=== PATIENT | female | born 1955 | race African-American/Black ===

== ENCOUNTER → 2017-04-17 | Outpatient (CLI) | payer MEDICARE ==
--- NOTE | 2017-04-18 08:59 | MM ---
Reason for exam: screening (asymptomatic). Last mammogram was performed 1 year and 2 months ago. History: Patient is postmenopausal. Physical Findings: A clinical breast exam by your physician is recommended on an annual basis and results should be correlated with mammographic findings. MG 3D Screening Mammo W/Cad Bilateral CC and MLO view(s) were taken. Prior study comparison: February 08, 2016, bilateral MG screening mammo w CAD. December 28, 2014, bilateral MG screening mammo w CAD. The breast tissue is heterogeneously dense. This may lower the sensitivity of mammography. Finding: There are heterogeneous, linear calcifications in the upper outer quadrant, anterior position of the left breast 3 cm from the nipple. New finding since February 08, 2016 and December 28, 2014. ASSESSMENT: Incomplete: need additional imaging evaluation, BI-RAD 0 RECOMMENDATION: Special view mammogram of the left breast. [facility] will attempt to contact patient to return for supplemental views.
== END | disposition home or self-care (01) ==
LOC: RADMAMWWP 16:35
PROVIDERS: ATTEND Internal Medicine
DX: Z12.31 Encounter for screening mammogram for malignant neoplasm of breast (principal)
CPT/HCPCS: 77063; G0202

== ENCOUNTER → 2017-04-24 | Outpatient (CLI) | payer MEDICARE ==
--- NOTE | 2017-04-24 10:07 | MM ---
Reason for exam: additional evaluation requested from abnormal screening. Last mammogram was performed less than 1 month ago. History: Patient is postmenopausal. Physical Findings: Nurse did not find any significant physical abnormalities on exam. MG 3D Work Up W/Cad LT CC and MLO view(s) were taken of the left breast. Prior study comparison: April 17, 2017, bilateral MG 3d screening mammo w/cad. February 08, 2016, bilateral MG screening mammo w CAD. There are scattered fibroglandular densities. Finding: There are typically benign round, linear, grouped/clustered calcifications in the left breast. No suspicious cluster of microcalcifications on additional views. Increase in number of calcifications since April 17, 2017 and February 08, 2016. These results were verbally communicated with the patient and result sheet given to the patient on 04/24/17. ASSESSMENT: Probably benign, BI-RAD 3 RECOMMENDATION: Follow-up diagnostic mammogram of the left breast in 6 months.
== END | disposition home or self-care (01) ==
LOC: RADMAMWWP 07:55
PROVIDERS: ATTEND Internal Medicine
DX: R92.8 Other abnormal and inconclusive findings on diagnostic imaging of breast (principal)
CPT/HCPCS: G0206; G0279

== ENCOUNTER → 2018-01-07 | Outpatient (CLI) | payer MEDICARE ==
--- NOTE | 2018-01-07 12:55 | XR ---
EXAMINATION TYPE: XR chest 2V DATE OF EXAM: 01/07/2018 COMPARISON: 02/29/2012 INDICATION: Cough, short of breath x3 days TECHNIQUE: Frontal and lateral views of the chest are obtained. FINDINGS: The heart size is normal. The pulmonary vasculature is normal. The lungs are clear. IMPRESSION: 1. No acute pulmonary process.
== END | disposition home or self-care (01) ==
LOC: RADXRMAIN 12:27
PROVIDERS: ATTEND Internal Medicine
DX: R05 Cough (principal)
CPT/HCPCS: 71046

== ENCOUNTER → 2018-01-13 | Outpatient (CLI) | payer MEDICARE ==
--- NOTE | 2018-01-13 11:04 | MM ---
Reason for exam: follow-up at short interval from prior study. Last mammogram was performed 9 months ago. History: Patient is postmenopausal. Physical Findings: Nurse did not find any significant physical abnormalities on exam. MG Diagnostic Mammo LT w CAD CC and MLO view(s) were taken of the left breast. Prior study comparison: April 24, 2017, left breast MG 3d work up w/cad LT. April 17, 2017, bilateral MG 3d screening mammo w/cad. There are scattered fibroglandular densities. Finding: There are typically benign round, grouped/clustered calcifications in the outer quadrant, anterior position of the left breast stable from 2017. Prominent benign left axillary lymph nodes, stable. These results were verbally communicated with the patient and result sheet given to the patient on 01/13/18. ASSESSMENT: Benign, BI-RAD 2 RECOMMENDATION: Follow-up diagnostic mammogram of both breasts in 3 months. Back on schedule.
== END | disposition home or self-care (01) ==
LOC: RADMAMWWP 10:10
PROVIDERS: ATTEND Internal Medicine
DX: R92.2 Inconclusive mammogram (principal)
CPT/HCPCS: 77065

== ENCOUNTER 2018-01-27 06:30 | Day surgery (SDC) | payer MEDICARE ==
[2018-01-20 13:25] VITALS: BMI 39.4
[2018-01-27] MEDS ORDERED: SODIUM CHLORIDE 0.9% 1,000 ML in EMPTY BAG 1 BAG IV ONE (06:47)
[2018-01-27] MEDS ORDERED: ASPIRIN 325 MG TAB PO STA (06:47)
[2018-01-27] MEDS ORDERED: ATORVASTATIN 80 MG TAB PO STA (06:47)
[2018-01-27] MEDS ORDERED: ALPRAZolam 0.5 MG TAB PO PRN (06:47)
[2018-01-27] MEDS ORDERED: NITROGLYCERIN SL TABS 0.4 MG TAB SUBLINGUAL PRN (06:47)
[2018-01-27] MEDS ORDERED: ALPRAZolam 0.25 MG TAB PO PRN (06:47)
[2018-01-27] MEDS ORDERED: SODIUM CHLORIDE 0.9% 1,000 ML IV ONE (07:07)
[2018-01-27] MEDS ORDERED: VERAPAMIL 2.5 MG/ML 2 ML AMP ONE ×2 (07:12→08:21)
[2018-01-27] MEDS ORDERED: LIDOCAINE 2% INJ 20 MG/ML (20 ML MDV) ONE ×2 (07:12→08:21)
[2018-01-27] MEDS ORDERED: fentaNYL (PF) 50 MCG/ML 2 ML AMP ONE (07:12)
[2018-01-27 07:23] VITALS: PULSE 81; TEMP 97.7
[2018-01-27 07:24] LABS: Glucose,Whole Blood 160 mg/dL (75-99)
[2018-01-27] MEDS ORDERED: fentaNYL (PF) 50 MCG/ML 2 ML AMP IV ONE (07:33)
[2018-01-27 07:34] LABS: Anion Gap 17 mmol/L; Blood Urea Nitrogen 21 mg/dL (7-17); Calcium 9.6 mg/dL (8.4-10.2); Carbon Dioxide 26 mmol/L (22-30); Chloride 100 mmol/L (98-107); Glucose 154 mg/dL (74-99); Potassium 3.8 mmol/L (3.5-5.1); Sodium 143 mmol/L (137-145)
[2018-01-27] MEDS: LIDOCAINE 2% INJ 20 MG/ML SQ ONE ×2 (07:35→08:11)
[2018-01-27] MEDS: VERAPAMIL SYRINGE (5 MG/10 ML) INTRAARTER ONE ×2 (07:38→08:03)
[2018-01-27] MEDS ORDERED: HEPARIN SODIUM 1,000 UN/ML (10ML VL) ONE (07:45)
[2018-01-27] MEDS ORDERED: LIDOCAINE 2% INJ 20 MG/ML SQ ONE (08:26)
[2018-01-27] MEDS ORDERED: VERAPAMIL SYRINGE (5 MG/10 ML) INTRAARTER ONE (08:30)
[2018-01-27] MEDS ORDERED: IOPAMIDOL-370 125ML BTL INJ ONE (08:43)
[2018-01-27] MEDS ORDERED: IOPAMIDOL-370 50ML BTL INJ ONE (08:44)
[2018-01-27] MEDS ORDERED: RX INFO: IV CONTRAST WAS GIVEN 1 EACH MISC MISCELLANE PRN (08:58)
[2018-01-27] MEDS ORDERED: SODIUM CHLORIDE 0.9% 1,000 ML IV SCH (09:00)
[2018-01-27] MEDS ORDERED: TIMOLOL 0.5% OPHTH DROPS 5 ML BTL BOTH EYES SCH (09:00)
[2018-01-27] MEDS ORDERED: METOPROLOL TARTRATE 50 MG TAB PO ONE (09:30)
[2018-01-27] MEDS ORDERED: LOSARTAN-HCTZ 50-12.5 MG 1 EACH TAB PO ONE (09:30)
--- NOTE | 2018-01-27 09:48 | CC ---
CARDIAC CATHETERIZATION REPORT Ms. Yao is a 62-year-old female with known history of hypertension, diabetes, family history of premature coronary artery disease who has been complaining of chest discomfort radiating to the back as well as dyspnea on exertion. She underwent a stress test that revealed evidence of inferior wall defect. In view of that, recommendation regarding cardiac catheterization. The procedures, risks and complication were discussed with the patient who is in full understanding and agreement. PROCEDURE: Patient was brought to the [facility] [employer] [facility] in a fasting state after receiving fentanyl and Benadryl and achieving moderate conscious sedated state. Using Xylocaine anesthesia in the surgical technique, a 6-Indonesian sheath was introduced in the right radial artery. Selective right common angiography performed with 5-Indonesian 3.5 bend right Ulsyses catheter. Images of the right coronary artery were performed. Multiple attempts to cannulate the left main using a 5-Indonesian 3.5 bend, 6-Indonesian Kobi, 5-Indonesian 3 Bend left Ulysses, Ultima I, multipurpose 5-Indonesian B2 were unsuccessful in cannulating the left main. At that point, attempt to cannulate the left femoral artery were unsuccessful, so the left radial artery was cannulated using Xylocaine anesthesia and Seldinger technique. A6-Indonesian sheath was introduced. Subsequently, images of the left knee were performed using a 6-Indonesian Ultima I catheter. After obtaining images of the coronary arteries including raman axial views, a 5-Indonesian tight pigtail catheter was introduced into the left ventricle and a 30 degree STAPLETON view of the left ventricle was obtained. Following that, the catheter and sheaths were removed. Hemostasis was obtained with deployment of a TR band on the right and left radial artery. There was no immediate complication. Patient is returned to her room in stable condition. Of note, the patient received 4500 units of intravenous heparin as well as intra-arterial verapamil. FINDINGS: LEFT MAIN: This is large-sized vessel bifurcating into left circumflex, left anterior descending artery, left main coronary artery is without any obstructive disease. LEFT ANTERIOR DESCENDING ARTERY: This is a large-sized vessel reaching toward the apex with a wraparound apex segment giving rise to a diagonal branch. The left anterior descending artery as well as branches have no evidence of obstructive disease. LEFT CIRCUMFLEX: This is a nondominant vessel, moderate in caliber giving rise to 3 obtuse marginal branches. The left circumflex as well as branches have no evidence of obstructive coronary artery disease. RIGHT CORONARY ARTERY: This is a dominant vessel giving rise to a right PDA and a small PLV. The right coronary artery as well as branches have no evidence of obstructive coronary artery disease. LEFT VENTRICULOGRAM: Left ventriculogram was performed in 30 degree STAPLETON view and revealed normal left ventricular size systolic function. The ejection fraction is 60%. There was no significant mitral regurgitation. HEMODYNAMICS: There was no gradient across the aortic valve. The left ventricular end-diastolic pressure was about 16-20 mmHg. CONCLUSION: 1. Normal coronary arteries. 2. Normal left ventricular size and systolic function. RECOMMENDATION: In view of finding anatomy, recommend continue medical therapy with aggressive risk- factor modifications being initiated. Those findings and recommendation were discussed with the patient and her family, who are in full understanding and agreement. DURATION OF PROCEDURE: 76 minute. MMODL / IJN: [id number] /
--- NOTE | 2018-01-27 09:54 | LTR ---
DATE OF SERVICE: 01/27/2018 RE: Mery Yao Dear Dr. Tabor; I had the pleasure to perform cardiac catheterization with Ms. Yao at [facility] on January 27, 2018 and a full copy of the procedure note will be forwarded to you. In brief, she was found to have no evidence of obstructive coronary artery disease with preserved left ventricular size and systolic function, and based on that, I recommend continue medical therapy with aggressive risk-factor modifications being initiated. Thank you again for allowing me to participate in this patient's care. Please feel free to call for any questions. Sincerely, MD ONESIMO Baird / TRACE: [id number] /
[2018-01-27 11:13] VITALS: RESP 20
[2018-01-27 11:37] LABS: Basophils % (A) 1 %; Eosinophils # (A) 0.2 k/uL (0-0.7); Eosinophils % (A) 3 %; HCT 36.3 % (34.0-46.0); HGB 12.1 gm/dL (11.4-16.0); Lymphocytes # (A) 1.8 k/uL (1.0-4.8); Lymphocytes % (A) 31 %; MCH 26.4 pg (25.0-35.0); MCHC 33.2 g/dL (31.0-37.0); MCV 79.5 fL (80.0-100.0); Mean Platelet Volume 8.2; Monocytes # (A) 0.5 k/uL (0-1.0); Monocytes % (A) 9 %; Neutrophils # (A) 3.3 k/uL (1.3-7.7); Neutrophils % (A) 54 %; Platelet Count 358 k/uL (150-450); RBC 4.57 m/uL (3.80-5.40); RDW 13.3 % (11.5-15.5)
[2018-01-27 14:17] LABS: Glucose,Whole Blood 144 mg/dL (75-99)
[2018-01-27 15:04] VITALS: BP 134/82
[2018-01-27] MEDS ORDERED: LOSARTAN-HCTZ 50-12.5 MG 1 EACH TAB PO SCH (21:00)
[2018-01-27] MEDS ORDERED: LATANOPROST 0.005% OPHTH DROPS 2.5 ML BTL BOTH EYES SCH (21:00)
[2018-01-27] MEDS ORDERED: METOPROLOL TARTRATE 50 MG TAB PO SCH (21:00)
[2018-01-28] MEDS ORDERED: ASPIRIN 81 MG PO SCH (09:00)
== END 2018-01-27 14:35 | disposition home or self-care (01) ==
LOC: CATHCVL 06:30
PROVIDERS: ATTEND Internal Medicine Interventional Cardiology
DX: R94.39 Abnormal result of other cardiovascular function study (principal); R07.89 Other chest pain; R06.09 Other forms of dyspnea; I47.1 Supraventricular tachycardia; Z82.49 Family history of ischemic heart disease and other diseases of the circulatory system; I10 Essential (primary) hypertension; E11.9 Type 2 diabetes mellitus without complications; Z79.4 Long term (current) use of insulin; Z88.0 Allergy status to penicillin; Z88.8 Allergy status to other drugs, medicaments and biological substances
CPT/HCPCS: 93458; 80048; 85025; C1894 ×2; C1887; C1769; J2001; J3010; J1644; Q9967 ×2

== ENCOUNTER → 2018-05-25 | Outpatient (CLI) | payer MEDICARE ==
--- NOTE | 2018-05-25 08:48 | MM ---
Reason for exam: additional evaluation requested from prior study. Last mammogram was performed 4 months ago. History: Patient is postmenopausal. Physical Findings: Nurse did not find any significant physical abnormalities on exam. MG Diagnostic Mammo w CAD JERMAIN Bilateral CC and MLO view(s) were taken. Technologist: Beverley Lopes RT (R)(M) Prior study comparison: January 13, 2018, left breast MG diagnostic mammo LT w CAD. April 24, 2017, left breast MG 3d work up w/cad LT. There are scattered fibroglandular densities. Stable benign calcifications. No significant new findings when compared with previous films. These results were verbally communicated with the patient and result sheet given to the patient on 05/25/18. ASSESSMENT: Benign, BI-RAD 2 RECOMMENDATION: Routine screening mammogram of both breasts in 1 year.
== END | disposition home or self-care (01) ==
LOC: RADMAMWWP 08:16
PROVIDERS: ATTEND Internal Medicine
DX: R92.2 Inconclusive mammogram (principal)
CPT/HCPCS: 77066

== ENCOUNTER → 2019-08-30 | Outpatient (CLI) | payer MEDICARE ==
--- NOTE | 2019-08-31 08:40 | BD ---
EXAMINATION TYPE: Axial Bone Density DATE OF EXAM: 08/30/2019 COMPARISON: NONE CLINICAL HISTORY: Height: Weight: FRAX RISK QUESTIONS: Alcohol (3 or more units per day): no Family History (Parent hip fracture): no Glucocorticoids (More than 3mos): no (Ex: prednisone, prednisolone, methylprednisolone, dexamethasone, and hydrocortisone). History of Fracture in Adulthood: no Secondary Osteoporosis: 1. Type 1 Diabetes: no 2. Hyperthyroidism: no 3. Menopause before 45: yes 4. Malnutrition: no 5. Chronic liver disease: no Rheumatoid Arthritis: no Current Tobacco Use: no RISK FACTORS HISTORY OF: Family History of Osteoporosis: yes- mother Active: yes Diet low in dairy products/other sources of calcium: no Postmenopausal woman: age 27 Lost more than 2 inches in height since high school: no MEDICATIONS: type 2 diabetic meds Additional History: EXAM MEASUREMENTS: Bone mineral densitometry was performed using the [employer] System. Bone mineral density as measured about the Lumbar spine is: ----- L1-L4(G/cm2): 1.531 T Score Values are as follows: ----- L2: 3.2 ----- L3: 3.2 ----- L4: 2.0 ----- L1-L4: 2.9 Bone mineral density has: increased 2.9 % since study of: 01.17.2014 Bone mineral density about the R hip (g/cm2): 1.366 Bone mineral density about the L hip (g/cm2): 1.332 T Score values are as follows: -----R Neck: 2.4 -----L Neck: 2.1 -----R Total: 4.0 -----L Total: 4.2 Bone mineral density has: decreased -3.4 % since study of: 01.17.2014 IMPRESSION: Normal (Values between +1 and -1 indicate normal bone mass). Consider repeating this study in 5 year s or sooner if there is some new clinical indication. NOTE: T-SCORE=SD OF THE YOUNG ADULT MEAN.
--- NOTE | 2019-08-31 12:13 | MM ---
Reason for exam: screening (asymptomatic). Last mammogram was performed 1 year and 3 months ago. History: Patient is postmenopausal. Physical Findings: A clinical breast exam by your physician is recommended on an annual basis and results should be correlated with mammographic findings. MG Screening Mammo w CAD Bilateral CC and MLO view(s) were taken. Prior study comparison: May 25, 2018, bilateral MG diagnostic mammo w CAD JERMAIN. January 13, 2018, left breast MG diagnostic mammo LT w CAD. There are scattered fibroglandular densities. Finding: There are typically benign dystrophic, round, regional calcifications in the left breast. There is no discrete abnormality. ASSESSMENT: Benign, BI-RAD 2 RECOMMENDATION: Routine screening mammogram of both breasts in 1 year.
== END | disposition home or self-care (01) ==
LOC: RADMAMWWP 14:19
PROVIDERS: ATTEND Internal Medicine
DX: Z12.31 Encounter for screening mammogram for malignant neoplasm of breast (principal); M85.9 Disorder of bone density and structure, unspecified
CPT/HCPCS: 77067; 77080

== ENCOUNTER 2019-09-29 06:39 | Emergency (ER) | payer MEDICARE ==
[2019-09-29 06:49] VITALS: RESP 18
[2019-09-29 06:54] LABS: Glucose,Whole Blood 215 mg/dL (75-99)
[2019-09-29] MEDS ORDERED: SODIUM CHLORIDE 0.9% 500 ML 500 ML IV STA (06:59)
[2019-09-29 07:08] LABS: Basophils % (A) 1 %; Eosinophils # (A) 0.3 k/uL (0-0.7); Eosinophils % (A) 4 %; HCT 35.5 % (34.0-46.0); HGB 12.1 gm/dL (11.4-16.0); Lymphocytes # (A) 2.5 k/uL (1.0-4.8); Lymphocytes % (A) 32 %; MCH 27.6 pg (25.0-35.0); MCV 81.2 fL (80.0-100.0); Mean Platelet Volume 7.5; Monocytes # (A) 0.6 k/uL (0-1.0); Monocytes % (A) 7 %; Neutrophils # (A) 4.1 k/uL (1.3-7.7); Neutrophils % (A) 54 %; Platelet Count 252 k/uL (150-450); RBC 4.37 m/uL (3.80-5.40); RDW 13.3 % (11.5-15.5); WBC 7.6 k/uL (3.8-10.6)
--- NOTE | 2019-09-29 07:08 | ED ---
General Adult HPI - General Chief complaint: Syncope Stated complaint: Syncope Time Seen by Provider: 09/29/19 06:48 Source: patient, EMS Mode of arrival: EMS Limitations: no limitations - History of Present Illness Initial comments: Patient is a 64-year-old female presenting to the emergency department, via EMS, after a syncopal episode. Patient states she awoke in the middle of the night feeling "off." She thought maybe her blood sugar was low as she felt like her legs were heavy and she felt lightheaded. Patient states she went to the restroom and open the window to get some fresh air and then we'll had a bowel movement. She then stood up to go back to bed however the Nexium she knew she woke up on the floor. Patient does not think she hit her head on anything. She denies being on blood thinners. Currently, patient has no pain. She states she feels okay. Patient denies recent fever, chills, cough, chest pain, nausea, vomiting. Patient states yesterday evening she went to congregational and came home and was feeling normal. Patient has no other complaints at this time. Upon arrival to the ER, her vital signs are stable. - Related Data Home Medications Medication Instructions Recorded Confirmed Aspirin [Adult Low Dose Aspirin EC] 81 mg PO DAILY 01/20/18 09/29/19 Insuln Asp Prt/Insulin Aspart 5 - 30 unit SQ BID 01/20/18 09/29/19 [NovoLOG MIX 70-30 VIAL] Latanoprost [Xalatan 0.005%] 1 drop BOTH EYES HS 01/20/18 09/29/19 Losartan-Hctz 50-12.5 mg [Hyzaar 1 each PO BID 01/20/18 09/29/19 50-12.5] Metoprolol Tartrate [Lopressor] 50 mg PO BID 01/20/18 09/29/19 Timolol 0.5% Ophth Soln [Timoptic 1 drop BOTH EYES BID 01/20/18 09/29/19 0.5% Ophth Soln] metFORMIN HCL 1,000 mg PO BID 01/20/18 09/29/19 Atorvastatin [Lipitor] 20 mg PO DAILY 09/29/19 09/29/19 Multivit with Calcium,Iron,Min 1 tab PO DAILY 09/29/19 09/29/19 [Women's Multivitamin] glipiZIDE [Glucotrol] 5 mg PO BID 09/29/19 09/29/19 Allergies Allergy/AdvReac Type Severity Reaction Status Date / Time metoclopramide [From Reglan] Allergy Unknown Verified 09/29/19 06:49 Penicillins Allergy Rash/Hives Verified 09/29/19 06:49 Review of Systems ROS Statement: Those systems with pertinent positive or pertinent negative responses have been documented in the HPI. ROS Other: All systems not noted in ROS Statement are negative. Past Medical History Past Medical History: Blood Disorder, Diabetes Mellitus, Eye Disorder, Fibromyalgia, Hypertension, Osteoarthritis (OA) Additional Past Medical History / Comment(s): Current SOB on occasion, back pain, persistent cough x 2yrs, anemia, bilateral glaucoma. murmur History of Any Multi-Drug Resistant Organisms: None Reported Past Surgical History: Heart Catheterization, Hysterectomy, Tonsillectomy Additional Past Surgical History / Comment(s): Partial hysterectomy, hemorrhoidectomy, bilateral carpal tunnel. bladder repair, bowel repair, vagus nerve removed. Past Anesthesia/Blood Transfusion Reactions: Family History of Problems w/ Anesthesia Additional Past Anesthesia/Blood Transfusion Reaction / Comment(s): Mother had hard time coming out of anesthesia X1. Past Psychological History: No Psychological Hx Reported Smoking Status: Never smoker Past Alcohol Use History: None Reported Past Drug Use History: None Reported - Past Family History Mother Family Medical History: No Reported History General Exam - General Exam Comments Initial Comments: GENERAL: Well-appearing, well-nourished and in no acute distress. HEAD: Atraumatic, normocephalic. EYES: Pupils equal round and reactive to light, extraocular movements intact, sclera anicteric, conjunctiva are normal. ENT: TMs normal, nares patent, oropharynx clear without exudates. Moist mucous membranes. NECK: Normal range of motion, supple without lymphadenopathy or JVD. LUNGS: Breath sounds clear to auscultation bilaterally and equal. No wheezes rales or rhonchi. HEART: Regular rate and rhythm without murmurs, rubs or gallops. ABDOMEN: Soft, nontender, normoactive bowel sounds. No guarding, no rebound. No masses appreciated. : Deferred EXTREMITIES: Normal range of motion, no pitting or edema. No clubbing or cyanosis. NEUROLOGICAL: Cranial nerves II through XII grossly intact. Normal speech, normal gait. PSYCH: Normal mood, normal affect. SKIN: Warm, Dry, normal turgor, no rashes or lesions noted. Limitations: no limitations Course Vital Signs 09/29/19 06:40 Temperature 98.6 F Pulse Rate 93 Respiratory 18 Rate Blood Pressure 127/60 O2 Sat by Pulse 97 Oximetry EKG Findings - EKG Comments: EKG Findings:: Ventricular rate 96, MD interval 140, QTC 467. Normal sinus rhythm, no acute ST segment changes. Medical Decision Making - Medical Decision Making Patient is a 64-year-old female presenting after syncopal episode at home. Patient states denies any pain today. She feels fine on arrival. Vital signs are stable. Workup today including lab work, urine, EKG, troponin, had CT, chest x-ray all showed no acute abnormalities. I discussed these findings with the patient. Patient states she has had previous syncopal episodes with numerous workups without any acute findings. Patient continues to feel stable and wishes to be discharged. Patient will follow up with her PCP. Patient is in agreement with this plan of care. Return parameters were discussed with the patient she verbalized understanding. Case discussed with Dr. Maldonado. - Lab Data Result diagrams: 09/29/19 06:48 09/29/19 06:48 Lab Results 09/29/19 09/29/19 09/29/19 Range/Units 06:48 06:48 06:48 WBC 7.6 (3.8-10.6) k/uL RBC 4.37 (3.80-5.40) m/uL Hgb 12.1 (11.4-16.0) gm/dL Hct 35.5 (34.0-46.0) % MCV 81.2 (80.0-100.0) fL MCH 27.6 (25.0-35.0) pg MCHC 34.0 (31.0-37.0) g/dL RDW 13.3 (11.5-15.5) % Plt Count 252 (150-450) k/uL Neutrophils % 54 % Lymphocytes % 32 % Monocytes % 7 % Eosinophils % 4 % Basophils % 1 % Neutrophils # 4.1 (1.3-7.7) k/uL Lymphocytes # 2.5 (1.0-4.8) k/uL Monocytes # 0.6 (0-1.0) k/uL Eosinophils # 0.3 (0-0.7) k/uL Basophils # 0.0 (0-0.2) k/uL PT 10.0 (9.0-12.0) sec INR 0.9 (<1.2) APTT 20.5 L (22.0-30.0) sec Sodium 138 (137-145) mmol/L Potassium 4.3 (3.5-5.1) mmol/L Chloride 102 (98-107) mmol/L Carbon Dioxide 23 (22-30) mmol/L Anion Gap 13 mmol/L BUN 21 H (7-17) mg/dL Creatinine 0.82 (0.52-1.04) mg/dL Est GFR (CKD-EPI)AfAm 87 (>60 ml/min/1.73 sqM) Est GFR (CKD-EPI)NonAf 75 (>60 ml/min/1.73 sqM) Glucose 221 H (74-99) mg/dL POC Glucose (mg/dL) (75-99) mg/dL POC Glu Refinery Operator Coking ID Calcium 9.7 (8.4-10.2) mg/dL Total Bilirubin 0.7 (0.2-1.3) mg/dL AST 42 H (14-36) U/L ALT 31 (4-34) U/L Alkaline Phosphatase 42 (38-126) U/L Troponin I (0.000-0.034) ng/mL Total Protein 7.6 (6.3-8.2) g/dL Albumin 4.5 (3.5-5.0) g/dL Urine Color Urine Appearance (Clear) Urine pH (5.0-8.0) Ur Specific Lester (1.001-1.035) Urine Protein (Negative) Urine Glucose (UA) (Negative) Urine Ketones (Negative) Urine Blood (Negative) Urine Nitrite (Negative) Urine Bilirubin (Negative) Urine Urobilinogen (<2.0) mg/dL Ur Leukocyte Esterase (Negative) Urine RBC (0-5) /hpf Urine WBC (0-5) /hpf Ur Squamous Epith Cells (0-4) /hpf Urine Mucus (None) /hpf 09/29/19 09/29/19 09/29/19 Range/Units 06:48 06:52 08:00 WBC (3.8-10.6) k/uL RBC (3.80-5.40) m/uL Hgb (11.4-16.0) gm/dL Hct (34.0-46.0) % MCV (80.0-100.0) fL MCH (25.0-35.0) pg MCHC (31.0-37.0) g/dL RDW (11.5-15.5) % Plt Count (150-450) k/uL Neutrophils % % Lymphocytes % % Monocytes % % Eosinophils % % Basophils % % Neutrophils # (1.3-7.7) k/uL Lymphocytes # (1.0-4.8) k/uL Monocytes # (0-1.0) k/uL Eosinophils # (0-0.7) k/uL Basophils # (0-0.2) k/uL PT (9.0-12.0) sec INR (<1.2) APTT (22.0-30.0) sec Sodium (137-145) mmol/L Potassium (3.5-5.1) mmol/L Chloride (98-107) mmol/L Carbon Dioxide (22-30) mmol/L Anion Gap mmol/L BUN (7-17) mg/dL Creatinine (0.52-1.04) mg/dL Est GFR (CKD-EPI)AfAm (>60 ml/min/1.73 sqM) Est GFR (CKD-EPI)NonAf (>60 ml/min/1.73 sqM) Glucose (74-99) mg/dL POC Glucose (mg/dL) 215 H (75-99) mg/dL POC Glu Refinery Operator Coking ID Nallely, Lizette Calcium (8.4-10.2) mg/dL Total Bilirubin (0.2-1.3) mg/dL AST (14-36) U/L ALT (4-34) U/L Alkaline Phosphatase (38-126) U/L Troponin I <0.012 (0.000-0.034) ng/mL Total Protein (6.3-8.2) g/dL Albumin (3.5-5.0) g/dL Urine Color Yellow Urine Appearance Clear (Clear) Urine pH 5.5 (5.0-8.0) Ur Specific Lester 1.012 (1.001-1.035) Urine Protein Negative (Negative) Urine Glucose (UA) 1+ H (Negative) Urine Ketones Negative (Negative) Urine Blood Negative (Negative) Urine Nitrite Negative (Negative) Urine Bilirubin Negative (Negative) Urine Urobilinogen <2.0 (<2.0) mg/dL Ur Leukocyte Esterase Moderate H (Negative) Urine RBC 1 (0-5) /hpf Urine WBC 2 (0-5) /hpf Ur Squamous Epith Cells 3 (0-4) /hpf Urine Mucus Rare H (None) /hpf Disposition Clinical Impression: Syncope Disposition: HOME SELF-CARE Condition: Stable Instructions (If sedation given, give patient instructions): Syncope (ED) Additional Instructions: Please return to the Emergency Department if symptoms worsen or any other concerns. Follow up with PCP. Is patient prescribed a controlled substance at d/c from ED?: No Referrals: Inga Tabor MD [Primary Care Provider] - 1-2 days
[2019-09-29 07:23] LABS: Albumin 4.5 g/dL (3.5-5.0); Calcium 9.7 mg/dL (8.4-10.2); Total Bilirubin 0.7 mg/dL (0.2-1.3); Total Protein 7.6 g/dL (6.3-8.2)
[2019-09-29 07:25] LABS: INR 0.9 (<1.2)
[2019-09-29 07:28] LABS: Potassium 4.3 mmol/L (3.5-5.1)
--- NOTE | 2019-09-29 07:34 | XR ---
EXAMINATION TYPE: XR chest 2V DATE OF EXAM: 09/29/2019 COMPARISON: 01/07/2018 INDICATION: Syncope with fall TECHNIQUE: Frontal and lateral views of the chest are obtained. FINDINGS: The heart size is normal. The pulmonary vasculature is normal. The lungs are clear. No pneumothorax is evident. Osseous structures as visualized appear intact IMPRESSION: 1. No acute pulmonary process.
--- NOTE | 2019-09-29 07:38 | CT ---
EXAMINATION TYPE: CT brain terrance wo con DATE OF EXAM: 09/29/2019 COMPARISON: HISTORY: Syncopal episode with head injury and dizziness. CT DLP: 1567.6 mGycm, Automated exposure control for dose reduction was used. CONTRAST: Patient injected with mL of . CT of the brain is performed utilizing 3 mm thick sections through the posterior fossa and 3 mm thick sections through the remaining calvarium. Study is performed within 24 hours of arrival to the hospital. No abnormal hyperdensity is present to suggest an acute intracranial hemorrhage. No mass lesion is evident. No acute infarcts are evident. Some minimal periventricular white matter chronic type changes may be present Ventricles and sulci are appropriate for the patient age. Paranasal sinuses and mastoid air cells within the [id number] are clear. IMPRESSIONS: 1. Minimal chronic appearing white matter changes. 2. No acute intracranial process. CT cervical spine. COMPARISON: None CT of the cervical spine is performed in the axial plane at 2 mm thick sections. Reconstructed image s in the coronal, and sagittal plane are reviewed on the computer. No acute fractures are evident. There is some straightening of the cervical spine in the upper cervical spine. There is narrowing of disc height C3-4 and to a lesser degree C4-5 C5-6 and C6-7. Anterior vertebral body spurring is present C3-C7. Posterior spinal lamellar line appears intact. Vertebral body heights are preserved. No spinal canal stenosis is evident. There is some uncovertebral joint hypertrophy at C3-4 causing mild foraminal narrowing. Mild right fo raminal narrowing is present C4-5. Minimal Uncovertebral joint hypertrophy is present C5-6 and C6-C 7 with minimal bilateral foraminal narrowing. IMPRESSIONS: 1. Straightening of the cervical spine can be related to some muscle spasm. 2. Multilevel degenerative disc changes. 3. Mild foraminal narrowing from uncovertebral joint hypertrophy discussed above 4. No acute osseous abnormality.
[2019-09-29 07:42] LABS: Partial Thromboplastin Time 20.5 sec (22.0-30.0)
[2019-09-29 08:15] LABS: Appearance,Urine Clear (Clear); Bilirubin,Urine Negative (Negative); Blood,Urine Negative (Negative); Color,Urine Yellow; Glucose,Urine (UA) 1+ (Negative); Ketones,Urine Negative (Negative); Leukocyte Esterase,Urine Moderate (Negative); Mucus,Urine Rare /hpf; Nitrite,Urine Negative (Negative); PH, Urine 5.5 (5.0-8.0); Protein,Urine Negative (Negative); RBC,Urine 1 /hpf (0-5); Specific Gravity,Urine 1.012 (1.001-1.035); Squamous Epithelial Cell,Urine 3 /hpf (0-4); Urobilinogen,Urine <2.0 mg/dL (<2.0); WBC,Urine 2 /hpf (0-5)
[2019-09-29 08:46] VITALS: BP 127/62; PULSE 96; TEMP 98.4
== END 2019-09-29 08:40 | disposition home or self-care (01) ==
LOC: EC 06:39
DX: R55 Syncope and collapse (principal); I10 Essential (primary) hypertension; E11.9 Type 2 diabetes mellitus without complications; Z79.82 Long term (current) use of aspirin; Z79.4 Long term (current) use of insulin; Z79.899 Other long term (current) drug therapy; Z88.0 Allergy status to penicillin; Z88.8 Allergy status to other drugs, medicaments and biological substances
CPT/HCPCS: 36415; 70450; 71046; 72125; 80053; 81001; 84484; 85025; 85610; 85730; 93005; 99285

== ENCOUNTER → 2020-09-04 | Outpatient (CLI) | payer MEDICARE ==
--- NOTE | 2020-09-04 09:23 | MM ---
Reason for exam: screening (asymptomatic). Last mammogram was performed 1 year ago. History: Patient is postmenopausal. Physical Findings: A clinical breast exam by your physician is recommended on an annual basis and results should be correlated with mammographic findings. MG Screening Mammo w CAD Bilateral CC and MLO view(s) were taken. Prior study comparison: August 30, 2019, bilateral MG screening mammo w CAD. May 25, 2018, bilateral MG diagnostic mammo w CAD JERMAIN. There are scattered fibroglandular densities. Finding: There are typically benign dystrophic calcifications in the anterior position of the left breast. There is no discrete abnormality. ASSESSMENT: Benign, BI-RAD 2 RECOMMENDATION: Routine screening mammogram of both breasts in 1 year.
--- NOTE | 2020-09-04 10:21 | BD ---
EXAMINATION TYPE: Axial Bone Density DATE OF EXAM: 09/04/2020 COMPARISON: DEXA bone scan 2018 CLINICAL HISTORY: Postmenopausal female. Height: 59 Weight: 194.6 FRAX RISK QUESTIONS: Alcohol (3 or more units per day): no Family History (Parent hip fracture): no Glucocorticoids (More than 3mos): no (Ex: prednisone, prednisolone, methylprednisolone, dexamethasone, and hydrocortisone). History of Fracture in Adulthood: no Secondary Osteoporosis: 1. Type 1 Diabetes: no 2. Hyperthyroidism: no 3. Menopause before 45: yes 4. Malnutrition: no 5. Chronic liver disease: no Rheumatoid Arthritis: no Current Tobacco Use: no RISK FACTORS HISTORY OF: Family History of Osteoporosis: yes Active: yes Diet low in dairy products/other sources of calcium: no Postmenopausal woman: hysterectomy age 27 Lost more than 2 inches in height since high school: just 2 inches MEDICATIONS: bp meds, diabetic meds, heart meds, lipitor, aspirin, vitamins Additional History: EXAM MEASUREMENTS: Bone mineral densitometry was performed using the [employer] System. Bone mineral density as measured about the Lumbar spine is: ----- L1-L4(G/cm2): 1.511 T Score Values are as follows: ----- L2: 3.1 ----- L3: 2.7 ----- L4: 2.2 ----- L1-L4: 2.8 Bone mineral density has: decreased -1.4 % since study of: 08.30.2019 Bone mineral density about the R hip (g/cm2): 1.341 Bone mineral density about the L hip (g/cm2): 1.436 T Score values are as follows: -----R Neck: 2.2 -----L Neck: 2.9 -----R Total: 4.1 -----L Total: 4.6 Bone mineral density has: increased 1.5 % since study of: 08.30.2019 IMPRESSION: Normal (Values between +1 and -1 indicate normal bone mass). Consider repeating this study in 5 year s or sooner if there is some new clinical indication. NOTE: T-SCORE=SD OF THE YOUNG ADULT MEAN.
== END | disposition home or self-care (01) ==
LOC: RADBDWWP 07:12
PROVIDERS: ATTEND Internal Medicine
DX: Z00.00 Encounter for general adult medical examination without abnormal findings (principal); Z12.31 Encounter for screening mammogram for malignant neoplasm of breast; M81.0 Age-related osteoporosis without current pathological fracture
CPT/HCPCS: 77067; 77080

== ENCOUNTER → 2021-05-16 | Outpatient (CLI) | payer MEDICARE ==
--- NOTE | 2021-05-16 14:32 | XR ---
EXAMINATION TYPE: XR lumbar spine 2 or 3V DATE OF EXAM: 05/16/2021 CLINICAL HISTORY: pain TECHNIQUE: Three views of the lumbar spine are submitted. COMPARISON: None. FINDINGS: There are 5 lumbar type vertebral bodies identified. The lumbar spine shows satisfactory alignment w ithout evidence of acute fracture or dislocation. Vertebral body heights are within normal limits. Mild degenerative disc space narrowing at L4-5 and L5-S1. Grade 1 anterolisthesis L4 and L5 measuring 4.6 mm. Facet joint arthropathy. The overlying soft tissue appears unremarkable. IMPRESSION: No acute fracture or dislocation is seen in the lumbar spine. ICD 10 NO FRACTURE, INITIAL EVALUATION
== END | disposition home or self-care (01) ==
LOC: RADXRMAIN 13:46
PROVIDERS: ATTEND Internal Medicine
DX: M54.5 Low back pain (principal)
CPT/HCPCS: 72100

== ENCOUNTER → 2021-07-14 | Outpatient (CLI) | payer MEDICARE ==
--- NOTE | 2021-07-14 09:56 | MR ---
EXAMINATION TYPE: MR lumbar spine wo con DATE OF EXAM: 07/14/2021 COMPARISON: None HISTORY: Low back pain/ spasms, left leg pain TECHNIQUE: Multiplanar, multisequence images of the lumbar spine were acquired without IV contrast. Findings: The lumbar vertebral segments are normal in height and alignment and there is no fracture or subluxat ion. The disc spaces are well-maintained in height. There is mild circumferential disc bulge at the T12/L1 disc, L3-4 disc, L4-5 and L5-S1 discs. There is no focal disc protrusion or herniation. There is marked facet arthropathy at the L4-5 level and moderate facet arthropathy at the L3-4 and L5 -S1 levels. Secondary to facet arthropathy and thickening ligamentum flavum, there is a mild spinal stenosis at t he L4-5 level. The conus medullaris and cauda equina appear normal. There is mild neural foraminal stenosis at the L3-4, L4-5 and L5-S1 levels on the left. There is mode rate to severe neural foraminal stenosis at the L4-5 level on the right.. IMPRESSION: 1. Mild multilevel degenerative disc disease without lumbar disc herniation. 2. Mild spinal stenosis at the L4-5 level. 3. Bilateral multilevel neural foraminal stenosis greatest at the L4-5 level on the right. 4. Advanced osteoarthritic change of the facet joints in the lower lumbar spine as described above. The paraspinal soft tissues are unremarkable.
== END | disposition home or self-care (01) ==
LOC: RADMRIMAIN 08:56
PROVIDERS: ATTEND Internal Medicine
DX: M48.061 Spinal stenosis, lumbar region without neurogenic claudication (principal); M51.36 Other intervertebral disc degeneration, lumbar region; M99.73 Connective tissue and disc stenosis of intervertebral foramina of lumbar region; M47.816 Spondylosis without myelopathy or radiculopathy, lumbar region
CPT/HCPCS: 72148

== ENCOUNTER → 2021-09-18 | Outpatient (CLI) | payer MEDICARE ==
--- NOTE | 2021-09-19 14:00 | MM ---
Reason for exam: screening (asymptomatic). Last mammogram was performed 1 year ago. History: Patient is postmenopausal. Physical Findings: A clinical breast exam by your physician is recommended on an annual basis and results should be correlated with mammographic findings. MG Screening Mammo w CAD Bilateral CC and MLO view(s) were taken. Prior study comparison: September 04, 2020, bilateral MG screening mammo w CAD. August 30, 2019, bilateral MG screening mammo w CAD. There are scattered fibroglandular densities. Benign appearing stable calcifications in the left breast. No significant changes when compared with prior studies. ASSESSMENT: Benign, BI-RAD 2 RECOMMENDATION: Routine screening mammogram of both breasts in 1 year.
== END | disposition home or self-care (01) ==
LOC: RADMAMWWP 10:13
PROVIDERS: ATTEND Internal Medicine
DX: Z12.31 Encounter for screening mammogram for malignant neoplasm of breast (principal); Z78.0 Asymptomatic menopausal state
CPT/HCPCS: 77067

== ENCOUNTER → 2021-10-24 | Outpatient (CLI) | payer MEDICARE ==
--- NOTE | 2021-10-24 12:52 | P.CON ---
Consult Note - . Consult date: 10/24/21 Assessment/Plan:: HISTORY OF PRESENT ILLNESS: 63 year old female with at side presents today as a referral from Dr. Tabor for lumbar pain s/p lumbar degenerative disc disease, spinal canal stenosis, neuroforaminal stenoses and facet arthropathy. States her pain is in the lower lumbar spine and radiates to her right hip and left thigh. Pain waxes & wanes in intensity throughout the day but averages at 7 /10 in intensity, dull and achy in the lower lumbar spine and is sharp & shooting in her hips bilaterally. It is provoked with laying supine on her right side, walking, twisting, lifting, or bending. It is palliated with medications, topicals, heat, ice, stretching, rest and home based exercise regimen. MRI of the lumbar spine from Jun, 2021 reviewed. Past Medical History: Blood Disorder, Diabetes Mellitus, Eye Disorder, Fibromyalgia, Hypertension, Osteoarthritis (OA) Additional Past Medical History / Comment(s): Current SOB on occasion, back pain, persistent cough x 2yrs, anemia, bilateral glaucoma. murmur History of Any Multi-Drug Resistant Organisms: None Reported Past Surgical History: Heart Catheterization, Hysterectomy, Tonsillectomy Additional Past Surgical History / Comment(s): Partial hysterectomy, hemorrhoidectomy, bilateral carpal tunnel. bladder repair, bowel repair, vagus nerve removed. Past Anesthesia/Blood Transfusion Reactions: Family History of Problems w/ Anesthesia Additional Past Anesthesia/Blood Transfusion Reaction / Comment(s): Mother had hard time coming out of anesthesia X1. Past Psychological History: No Psychological Hx Reported Smoking Status: Never smoker Past Alcohol Use History: None Reported Past Drug Use History: None Reported REVIEW OF ORGAN SYSTEMS: CONSTITUTIONAL: No fevers or chills. No recent weight loss. HEENT: No visual acuity loss, eye pain, difficulties with hearing. No nosebleeds. No difficulty swallowing. RESPIRATORY: Denies any troubles with breathing or dyspnea on exertion. CARDIOVASCULAR: Denies any chest pain, palpitations, or recent heart attacks. GASTROINTESTINAL: Denies fatty food intolerance. Has change in bowel habits and gas bloat. GENITOURINARY: Denies any blood in urine. Has increased urinary frequency. NEUROLOGICAL: + numbness and tingling along the distal extremities. No seizure disorders or headaches. MUSCULOSKELETAL: + back pain SKIN: No skin cancer. No rash. PSYCHIATRIC: Denies current depression or suicidal thoughts. ENDOCRINE: Denies current thyroid disorders. Denies any blood sugar glucose intolerance. HEME/LYMPHATIC: Denies any lumps and bumps around the neck. History of deep venous thrombosis. ALLERGY/IMMUNOLOGY: No immunoglobulin therapy. No immune deficiencies. BREAST: Denies current breast lumps, pain or nipple discharge. Physical Examinations : Constitutional : Cooperative , not in acute distress . HEENT: Neck supple. No Lymphadenopathy. Normal thyroid size . Eyes no ptosis , no icterus, no photophobia . Hearing intact. Normal oropharynx. No Thrush. Respiratory : Chest clear to auscultations bilaterally. No wheezing. No rhonchi. Cardiovascular : Regular rate and rhythm , S1 / S2. No S3 . No S4. Gastrointestinal : Abdomen soft. No tenderness. Bowel sounds x 4. No organomegaly . Genitourinary : Deferred. Neurologic : Cranial nerve II to XII intact. No focal neurological deficits. Psychiatric : alert & oriented x 3. Matching mood & appropriate affect. Judgment & insight intact. Lymphatic No Lymphadenopathy. Musculoskeletal : Cervical Spine Motor strength in the deltoid and biceps: Normal right side. Normal Left side Motor strength biceps and the wrist extensors: Normal right side . Normal left side Motor strength in the triceps muscle: Normal right side. Normal left side Deep tendon reflexes: Normal at the biceps. Normal at Brachioradialis. Normal at triceps Cervical facet loading test: positive bilaterally Spurling test: positive bilaterally Neck distraction test: positive bilaterally Ming sign: positive bilaterally Lumbar spine Motor strength lower extremities ,thigh and legs 5/5 Right side , 5/5 Left side Deep tendon reflexes : Normal Knee Jerk. Normal Ankle Jerk Lumbar facet Loading Test: positive Right / positive Left Range of motion of the lumbar spine Flexion 30 degrees, extension 10 degrees Straight Leg Raise test: Left/ Right positive at 30 degreed Bryon test: positive right / positive left. Severe tenderness over the Sacroiliac joint on the Right / Left sides Gaenslen test: positive Right Seated flexion test: positive right Assessment/ Plan : Recommendation of LESI L4-L5 Risks, benefits of procedure discussed and pt verbalized understanding Discontinue aspirin use 5 days prior to procedure I have spent greater than 50 minutes on patient care today. Dr Chandler was available by phone for the evaluation of this patient. The time was used to review the medical records including relevant urine studies and Prescription history (MAPs), review of the available imaging, evaluation and examination of the patient, coordination of care with the medical staff and if applicable referring physicians, as well as creation of the medical record PQRS Measure Charge Sheet - Pain Location Right Lower Back Non-Pharmacological Interventions: Heat Pharmacological Interventions: Medication PQRS Narrative: Smoking Status Never smoker Hx Alcohol Use (MH) No Home Medications: Ambulatory Orders Aspirin [Adult Low Dose Aspirin EC] 81 mg PO DAILY 01/20/18 Insuln Asp Prt/Insulin Aspart [NovoLOG MIX 70-30 VIAL] 15 units SQ BID 01/20/18 Latanoprost [Xalatan 0.005%] 1 drop BOTH EYES HS 01/20/18 Losartan-Hctz 50-12.5 mg [Hyzaar 50-12.5] 1 each PO BID 01/20/18 Metoprolol Tartrate [Lopressor] 50 mg PO BID 01/20/18 metFORMIN HCL [Glucophage] 1,000 mg PO BID 01/20/18 Atorvastatin [Lipitor] 20 mg PO DAILY 09/29/19 Multivit with Calcium,Iron,Min [Women's Multivitamin] 1 tab PO DAILY 09/29/19 Ascorbic Acid [Vitamin C] 500 mg PO DAILY 10/17/21 Ferrous Sulfate [Feosol] 325 mg PO DAILY 10/17/21 methocarbamoL [Methocarbamol] 500 mg PO BID 10/17/21
[2021-10-24 13:16] VITALS: PULSE 83; RESP 18
== END ==
LOC: PNWHC3 10:31
PROVIDERS: ATTEND Physician Assistant Medical
DX: M47.16 Other spondylosis with myelopathy, lumbar region (principal); E11.9 Type 2 diabetes mellitus without complications; I10 Essential (primary) hypertension; M19.90 Unspecified osteoarthritis, unspecified site; Z79.82 Long term (current) use of aspirin; Z79.4 Long term (current) use of insulin; Z79.84 Long term (current) use of oral hypoglycemic drugs; Z79.899 Other long term (current) drug therapy; Z88.5 Allergy status to narcotic agent; Z88.0 Allergy status to penicillin
CPT/HCPCS: 99211

== ENCOUNTER 2021-11-27 09:46 | Day surgery (SDC) | payer MEDICARE ==
[2021-11-26 12:31] VITALS: BMI 38.2
[2021-11-27 10:12] VITALS: TEMP 98.4
[2021-11-27] MEDS ORDERED: LACTATED RINGERS 1,000 ML IV ONE (10:27)
[2021-11-27] MEDS ORDERED: LIDOCAINE 1% (10MG/ML) FOR IV START INTRADERMA ONE (10:28)
[2021-11-27] MEDS ORDERED: MIDAZOLAM 2 MG/2 ML VIAL ONE (10:29)
[2021-11-27] MEDS ORDERED: methylPREDNISolone ACETATE 40 MG/ML 1 ML VIAL ONE (10:29)
[2021-11-27] MEDS ORDERED: IOPAMIDOL M200 10 ML VIAL ONE (10:29)
[2021-11-27] MEDS ORDERED: fentaNYL (PF) 50 MCG/ML 2 ML AMP ONE (10:29)
[2021-11-27 10:30] LABS: Glucose,Whole Blood 101 mg/dL (75-99)
--- NOTE | 2021-11-27 10:43 | P.PCN ---
Date of Procedure: 11/27/21 Description of Procedure: Procedure: 1 L4-L5 Epidural steroid injection under fluoroscopic guidance # 10/01 , 2. Lumbar epidurogram PREOPERATIVE DIAGNOSIS: Lumbar degenerative disc disease, and Lumbar radiculopathy. POSTOPERATIVE DIAGNOSIS: Lumbar degenerative disc disease, and Lumbar radiculopathy. SURGEON: Ba Paul ANESTHESIA: Local with 1% lidocaine, and IV sedation: Midazolam 2 mg, and fentanyl 50 g EBL: None. Specimen removed: None Fluoroscopic image: saved to electronic medical records PROCEDURE INDICATION: The patient had history of Lumbar degenerative disc disease and Lumbar radiculopathy. Failed to conservative therapy. Presented for epidural steroid injection. PROCEDURE DESCRIPTION: The patient was seen and identified in the preoperative area. Risks, benefits, complications, and alternatives were discussed with the patient. The patient agreed to proceed with the procedure and signed the consent. IV was started, and vital signs were stable. Patient was taken to the procedure area, and time out was completed. The patient was placed in the prone position on procedure table and a pillow was placed under the abdomen to reduce lumbar lordosis. The lumbosacral area was prepped and draped in the usual sterile fashion. Critical pause was taken. Vital signs were closely monitored during the procedure. Using anterior-posterior fluoroscopy, the L4-L5 interlaminar space was identified, and skin and deeper tissues were localized with 1% lidocaine. Using anterior-posterior fluoroscopy, lateral fluoroscopy, and [id number] technique, a 18 gauge 3.5 Tuohy epidural needle entered the epidural space. After negative aspiration of CSF and blood with no paresthesias, 1 ml of [id number] contrast dye was injected and an excellent epidurogram was seen. Again after negative aspiration of CSF and blood with no paresthesias, 10 mL of block solution was injected into the epidural space. Block solution contained 40 mg of Depo-Medrol, and 9 mL of preservative-free normal saline. Needle was withdrawn intact, skin was cleansed, and bandages were applied. COMPLICATIONS: None. DISPOSITION / PLANS: The patient was placed in a supine position and transferred to the recovery area in a stable condition for observation. Patient was discharged from the recovery room after meeting discharge criteria. Home discharge instructions given to the patient by the staff. The patient was reexamined prior to discharge. The patient will schedule a follow up in the clinic in 4 weeks.
[2021-11-27] MEDS ORDERED: LACTATED RINGERS 1,000 ML IV SCH (10:45)
[2021-11-27] MEDS ORDERED: IV FLUID CONTINUATION 1,000 ML IV ONE ×2 (10:46)
[2021-11-27 10:49] VITALS: BP 108/69; PULSE 90; RESP 16
--- NOTE | 2021-11-27 11:37 | FL ---
EXAMINATION TYPE: FL guided pain mgmt statistic DATE OF EXAM: 11/27/2021 CLINICAL HISTORY: Low back pain. TECHNIQUE: Fluoroscopy. COMPARISON: None. FINDINGS: Fluoroscopic guidance was provided during pain relief procedure performed by Dr. Paul . A total of 4 seconds of fluoroscopic time was utilized during the procedure and two spot images are acquired. Images acquired shows needle localization at L4-L5 level from posterior approach. IMPRESSION: As Above.
== END 2021-11-27 11:20 ==
LOC: ORPAIN 09:46
DX: M51.16 Intervertebral disc disorders with radiculopathy, lumbar region (principal); I10 Essential (primary) hypertension; E11.9 Type 2 diabetes mellitus without complications; I25.10 Atherosclerotic heart disease of native coronary artery without angina pectoris; Z90.710 Acquired absence of both cervix and uterus; Z98.890 Other specified postprocedural states; Z88.0 Allergy status to penicillin; Z88.8 Allergy status to other drugs, medicaments and biological substances
CPT/HCPCS: 62323; J2250; J1030; J3010; Q9966; 99152

== ENCOUNTER → 2021-12-13 | Outpatient (CLI) | payer MEDICARE ==
[2021-12-13 11:12] VITALS: BP 128/61; PULSE 87; RESP 18; TEMP 98.4
--- NOTE | 2021-12-13 11:31 | P.PN ---
Subjective Progress Note Date: 12/13/21 Principal diagnosis: A 66 yr old female with at side with a history of severe and chronic low back pain secondary to lumbar degenerative disc diseases and lumbar spondylosis with facet arthropathy presents today for evaluation status post LESI L4-L5 #1. Patient states she experiences percent pain relief for 10-14 days status post procedure. Pain level is currently at 7 out of 10 in intensity, dull, achy, sore in the lower aspects of her lumbar spine where it meets her tailbone with radiation of pain to the hips bilaterally and lower extremities. She also complains of numbness in the left knee down and burning pain in the right foot. Pain is provoked by lifting, walking for 10 minutes or standing for 15 minutes. She complains her gait is imbalanced due to lower extremity pain. Pain is alleviated with medications, topicals, injections, heat, physical therapy in the past, chiropractic treatments in the past, home exercise regimen, massage therapy in the past, repositioning while standing & walking and rest. Interventional pain procedures completed include LESI L4-L5 #1 Patient is currently on Tylenol OTC Patient denies any side effects of the medication(s), denies excessive drowsiness or sleepiness, denies suicidal ideation and reports that the current pain medication is helping to control the pain and improve activities of daily living. Patient denies any motor or sensory deficits. Patient denies any fever or night sweats, denies any change in the bowel movements or urination. Physical Examination: -Constitutional: Cooperative. Not in acute distress . -HEENT: Neck is supple. No lymphadenopathy. No thyromegaly. Normal thyroid size. Eyes: No ptosis , no icterus, no photophobia. ENT: No auditory deficits. Normal oropharynx. No Thrush. - Respiratory: Chest clear to auscultations bilaterally. No wheezing. No rhonchi. - Cardiovascular: Regular rate and rhythm. S1 / S2 , no S3 , no S4. - Gastrointestinal: Abdomen soft no tenderness. Bowel sounds positive in all four quadrants. No organomegaly. - Genitourinary: Deferred. - Neurologic: Cranial nerve II to XII intact. No focal neurological deficits. - Psychatric: Alert & oriented x 3. Matching mood & appropriate affect. Judgment and insight intact. - Lymphatic: No Lymphadenopathy. - Musculoskeletal: Cervical spine: Muscle bulk/ tone/ strength in the bilateral upper extremities normal. Facet loading test cervical area positive. Lumbar spine: Motor bulk/ tone/ strength lower extremities , thigh and legs : 5/5 Deep tendon reflexes : Normal Knee Jerk. Normal Ankle Jerk . Vertebral body tenderness to palpation over L4, L5, S1 Lumbar Facet Loading Test positive Straight Leg Raise: positive at 30 degrees right side/ left side Gaenslen's Test positive Sacral spine : Severe tenderness over the Sacroiliac joint: right side / left side Range of motion: Flexion of the lumbar spine <60 degrees Range of motion: Extension of the lumbar spine <20 degrees Gaenslen's Test positive Bryon test: positive right side / left side Assessment and plan: Chronic low back pain secondary to lumbar degenerative disc disease , lumbar spondylosis with facet arthropathy without myelopathy, BL Hip OA. Recommendation of LESI L5-S1. Risks, benefits of procedure discussed and patient verbalized understanding. Admits to diabetes with metformin use. Admits to taking ASA 81 mg daily. Protocol regarding discontinuation / continuation of medications garth- procedure discussed. MRI without contrast of hips bilaterally Dx: M16.10 All patient questions answered MAPS reviewed and it was appropriate. I have spent 31 minutes on patient care today. Dr Chandler was available by phone for the evaluation of this patient. The time was used to review the medical records including relevant urine studies and Prescription history (MAPs), review of the available imaging, evaluation and examination of the patient, coordination of care with the medical staff and if applicable referring physicians, as well as creation of the medical record Objective - Vital Signs Vital signs: Vital Signs Temp 98.4 F 12/13/21 11:08 Pulse 87 12/13/21 11:08 Resp 18 12/13/21 11:08 BP 128/61 12/13/21 11:08 Pulse Ox 96 12/13/21 11:08 Intake & Output 12/12/21 12/13/21 12/13/21 18:59 06:59 18:59 Weight 83.007 kg PQRS Measure Charge Sheet Mode of Arrival: Ambulatory - Pain Location Lower Back Non-Pharmacological Interventions: Chiropractic Treatment, Heat, Home Exercise, Physical Therapy, Position/Reposition, Stretching Pharmacological Interventions: Epidural, PRN Medication, Topical Medication PQRS Narrative: Smoking Status Never smoker Blood Pressure 128/61 Pain Intensity [Lower Back] 7 Scale Used Numeric (1 - 10) Hx Alcohol Use (MH) No Home Medications: Ambulatory Orders Aspirin [Adult Low Dose Aspirin EC] 81 mg PO DAILY 01/20/18 Insuln Asp Prt/Insulin Aspart [NovoLOG MIX 70-30 VIAL] 15 units SQ BID 01/20/18 Latanoprost [Xalatan 0.005%] 1 drop BOTH EYES HS 01/20/18 Losartan-Hctz 50-12.5 mg [Hyzaar 50-12.5] 1 each PO BID 01/20/18 Metoprolol Tartrate [Lopressor] 50 mg PO BID 01/20/18 metFORMIN HCL [Glucophage] 1,000 mg PO BID 01/20/18 Atorvastatin [Lipitor] 20 mg PO DAILY 09/29/19 Multivit with Calcium,Iron,Min [Women's Multivitamin] 1 tab PO DAILY 09/29/19 Ascorbic Acid [Vitamin C] 500 mg PO DAILY 10/17/21 Ferrous Sulfate [Feosol] 325 mg PO DAILY 10/17/21 methocarbamoL [Methocarbamol] 500 mg PO BID 10/17/21
== END ==
LOC: PNWHC3 09:44
PROVIDERS: ATTEND Specialist
DX: G89.29 Other chronic pain (principal); M51.36 Other intervertebral disc degeneration, lumbar region; M47.816 Spondylosis without myelopathy or radiculopathy, lumbar region; M16.0 Bilateral primary osteoarthritis of hip; E11.9 Type 2 diabetes mellitus without complications; Z79.84 Long term (current) use of oral hypoglycemic drugs; Z79.82 Long term (current) use of aspirin; Z88.0 Allergy status to penicillin; Z88.8 Allergy status to other drugs, medicaments and biological substances
CPT/HCPCS: 99211

== ENCOUNTER → 2021-12-14 | Outpatient (CLI) | payer MEDICARE ==
--- NOTE | 2021-12-14 12:11 | XR ---
EXAMINATION TYPE: XR Hip Bilateral Complete DATE OF EXAM: 12/14/2021 CLINICAL HISTORY: Chronic bilateral hip pain TECHNIQUE: AP and frogleg views of the bilateral hips are obtained. COMPARISON: None. FINDINGS: There is no acute fracture/dislocation evident in either hip. Mild to moderate axial joint space loss in both hips with mild acetabular spurring greater on the right. Femoral head shapes are maintained bilaterally. A few inferior right central pelvic phleboliths are present. IMPRESSION: As above.
== END | disposition home or self-care (01) ==
LOC: RADXRMAIN 11:18
PROVIDERS: ATTEND Physician Assistant Medical
DX: M25.551 Pain in right hip (principal); M25.552 Pain in left hip
CPT/HCPCS: 73521

== ENCOUNTER 2021-12-23 14:53 | Emergency (ER) | payer MEDICARE ==
[2021-12-23 15:05] VITALS: BP 144/79; PULSE 92; RESP 18; TEMP 98.5
[2021-12-23] MEDS ORDERED: KETOROLAC 15 MG/ML 1 ML VIAL IM STA (15:54)
[2021-12-23] MEDS ORDERED: DEXAMETHASONE SOD PHOSPHATE 10 MG/ML 1 ML VIAL IM STA (16:00)
--- NOTE | 2021-12-23 16:10 | ED ---
General Adult HPI - General Source: patient Mode of arrival: ambulatory Limitations: no limitations <Lloyd Holm - Last Filed: 12/23/21 17:23> <Ashly Schilling - Last Filed: 12/24/21 21:51> - General Chief complaint: Extremity Injury, Lower Stated complaint: Left Leg Pain and numbness Time Seen by Provider: 12/23/21 15:40 - History of Present Illness Initial comments: Patient is a 66-year-old female presenting with chief complaint of low back pain with radiation to the left leg. Patient states she has had recurrent issues with back pain and currently sees pain medicine. Patient states that she is due for another epidural for her back pain but the appointment is not until December and she is in significant pain. Patient states that there is sharp pain radiating down her left leg which prevents her from walking or bearing weight on that side of the body. Patient has been taking her prescribed muscle relaxer and acetaminophen for pain relief with no relief. She denies any new injuries, loss of bowel or bladder control, saddle paresthesia, bilateral weakness, lower extremity swelling, chest pain, shortness of breath, abdominal pain, Fever, chills, nausea, vomiting, rash. (Lloyd Holm) - Related Data Home Medications Medication Instructions Recorded Confirmed Aspirin [Adult Low Dose Aspirin EC] 81 mg PO DAILY 01/20/18 12/13/21 Insuln Asp Prt/Insulin Aspart 15 units SQ BID 01/20/18 12/13/21 [NovoLOG MIX 70-30 VIAL] Latanoprost [Xalatan 0.005%] 1 drop BOTH EYES HS 01/20/18 12/13/21 Losartan-Hctz 50-12.5 mg [Hyzaar 1 each PO BID 01/20/18 12/13/21 50-12.5] Metoprolol Tartrate [Lopressor] 50 mg PO BID 01/20/18 12/13/21 metFORMIN HCL [Glucophage] 1,000 mg PO BID 01/20/18 12/13/21 Atorvastatin [Lipitor] 20 mg PO DAILY 09/29/19 12/13/21 Multivit with Calcium,Iron,Min 1 tab PO DAILY 09/29/19 12/13/21 [Women's Multivitamin] Ascorbic Acid [Vitamin C] 500 mg PO DAILY 10/17/21 12/13/21 Ferrous Sulfate [Feosol] 325 mg PO DAILY 10/17/21 12/13/21 methocarbamoL [Methocarbamol] 500 mg PO BID 10/17/21 12/13/21 Previous Rx's Medication Instructions Recorded methylPREDNISolone [Medrol Dose 4 mg PO DIRECTED #1 packet 12/23/21 Pack] Allergies Allergy/AdvReac Type Severity Reaction Status Date / Time metoclopramide [From Reglan] Allergy Unknown Verified 12/23/21 15:01 Penicillins Allergy Rash/Hives Verified 12/23/21 15:01 Review of Systems ROS Other: All systems not noted in ROS Statement are negative. <Lloyd Holm - Last Filed: 12/23/21 17:23> ROS Other: All systems not noted in ROS Statement are negative. <Ashly Schilling - Last Filed: 12/24/21 21:51> ROS Statement: Those systems with pertinent positive or pertinent negative responses have been documented in the HPI. Past Medical History Past Medical History: Blood Disorder, Diabetes Mellitus, Eye Disorder, Fibromyalgia, Hyperlipidemia, Hypertension, Osteoarthritis (OA) Additional Past Medical History / Comment(s): Current SOB on occasion, back pain, persistent cough x 2yrs, anemia, bilateral glaucoma. Heart murmur. Hx. of SVT., states has bowel leakage. History of Any Multi-Drug Resistant Organisms: None Reported Past Surgical History: Heart Catheterization, Hysterectomy, Tonsillectomy Additional Past Surgical History / Comment(s): Partial hysterectomy, hemorrhoidectomy, bilateral carpal tunnel. bladder repair, bowel repair, vagus nerve removed. Past Anesthesia/Blood Transfusion Reactions: Family History of Problems w/ Anesthesia Additional Past Anesthesia/Blood Transfusion Reaction / Comment(s): Mother had hard time coming out of anesthesia X1. Past Psychological History: No Psychological Hx Reported Smoking Status: Never smoker Past Alcohol Use History: None Reported Past Drug Use History: None Reported - Past Family History Mother Family Medical History: No Reported History <Lloyd Holm - Last Filed: 12/23/21 17:23> General Exam Limitations: no limitations General appearance: alert, in no apparent distress Head exam: Present: atraumatic, normocephalic, normal inspection Eye exam: Present: normal appearance, PERRL, EOMI. Absent: scleral icterus, conjunctival injection, periorbital swelling Neck exam: Present: normal inspection Extremities exam: Present: normal inspection. Absent: full ROM (Limited range of motion of the left leg secondary to pain) Left Hip exam: Present: normal inspection. Absent: full ROM (Secondary to pain), swelling Upper Leg exam: Present: normal inspection. Absent: full ROM (Secondary to pain), swelling Back exam: Present: normal inspection, paraspinal tenderness. Absent: full ROM (Secondary to pain), vertebral tenderness Neurological exam: Present: alert, oriented X3, CN II-XII intact Psychiatric exam: Present: normal affect, normal mood Skin exam: Present: warm, dry, intact, normal color. Absent: rash <Lloyd Holm - Last Filed: 12/23/21 17:23> Course Vital Signs 12/23/21 15:01 Temperature 98.5 F Pulse Rate 92 Respiratory 18 Rate Blood Pressure 144/79 O2 Sat by Pulse 98 Oximetry Medical Decision Making - Radiology Data Radiology results: report reviewed, image reviewed <Lloyd Holm - Last Filed: 12/23/21 17:23> <Ashly Schilling - Last Filed: 12/24/21 21:51> - Medical Decision Making Patient is a 66-year-old female presenting with chief complaint of low back pain radiating down to the left leg. Patient states this has been a recurrent issue for years. She sees pain medicine and is scheduled to see them in December, but over the last week she has been a significant amount of pain. She has been taking acetaminophen and her prescribed muscle relaxer without any relief. On examination the patient is sitting in such a way that her left side does not touch the stretcher. On palpation of the lower back there is paraspinal muscle tenderness. She has limited range of motion of the left side secondary to pain. Lumbar x-ray shows negative lumbar spine exam. No fracture. No change. Patient was given 30 mg of Toradol IM and 10 mg of Decadron IM. Patient reports some relief. She appears stable for discharge at this time. Prescribed Medrol Dosepak. Take Tylenol Motrin for pain relief as needed. Continue taking muscle relaxer as needed. Follow up with PCP and pain medicine. I educated the patient on return parameters. Informed about alarming symptoms. Answered all questions. Patient conveyed verbal understanding and agreed to the plan. (Lloyd Holm) I was available for consultation in the emergency department. The history and physical exam were done by the midlevel provider. I was consulted for this patients care. I reviewed the case with the midlevel provider and based on their presentation of the patient, I agree with the assessment, medical decision making and plan of care as documented. Chart was dictated using [employer] dictation software. Attempts were made to correct any dictation errors however some typographical errors may persist. (Ashly Schilling) - Radiology Data Lumbar x-ray shows negative lumbar spine exam. No fracture. No change. (Llody Holm) Disposition Is patient prescribed a controlled substance at d/c from ED?: No Time of Disposition: 17:22 <Lloyd Holm - Last Filed: 12/23/21 17:23> <Ashly Schilling - Last Filed: 12/24/21 21:51> Clinical Impression: Low back strain Disposition: HOME SELF-CARE Condition: Good Instructions (If sedation given, give patient instructions): Low Back Strain (ED), Chronic Back Pain (DC) Additional Instructions: Follow-up with PCP and pain medicine. Take medication as prescribed. Take Motrin and Tylenol as needed for pain control. Report back to ER with any worsening symptoms. Prescriptions: methylPREDNISolone [Medrol Dose Pack] 4 mg PO DIRECTED #1 packet Referrals: Inga Tabor MD [Primary Care Provider] - 1-2 days
--- NOTE | 2021-12-23 16:40 | XR ---
EXAMINATION TYPE: XR lumbar spine 2 or 3V DATE OF EXAM: 12/23/2021 COMPARISON: 05/16/2021 HISTORY: Back pain TECHNIQUE: 3 views FINDINGS: The vertebra have normal alignment. Posterior elements are intact. No compression fracture. Sacroiliac joints are intact. IMPRESSION: Negative lumbar spine exam. No fracture. No change
[2021-12-23] MEDS ORDERED: HYDROcodone/APAP 5-325MG 1 EACH TAB PO STA (18:16)
== END 2021-12-23 18:41 | disposition home or self-care (01) ==
LOC: EC 14:53
DX: S39.012A Strain of muscle, fascia and tendon of lower back, initial encounter (principal); E11.9 Type 2 diabetes mellitus without complications; I10 Essential (primary) hypertension; E78.5 Hyperlipidemia, unspecified; M19.90 Unspecified osteoarthritis, unspecified site; M79.7 Fibromyalgia; Z79.84 Long term (current) use of oral hypoglycemic drugs; Z79.4 Long term (current) use of insulin; Z79.82 Long term (current) use of aspirin; Z79.899 Other long term (current) drug therapy; X58.XXXA Exposure to other specified factors, initial encounter
CPT/HCPCS: 72100; 99283; 96372 ×2; J1100; J1885

== ENCOUNTER → 2022-01-24 | Outpatient (CLI) | payer MEDICARE ==
[2022-01-24 10:46] VITALS: BP 129/66; PULSE 86; RESP 18; TEMP 98.7
--- NOTE | 2022-01-24 11:21 | P.PN ---
Subjective Progress Note Date: 01/24/22 Principal diagnosis: A 66 yr old female with a history of severe and chronic low back pain secondary to lumbar degenerative disc diseases and lumbar spondylosis with facet arthropathy presents today for evaluation status post LESI L5-S1 #1. Patient states she experienced 0% pain relief status post procedure. Pain level is currently at 8 out of 10 in intensity, bilateral hip pain that is constant, aching, throbbing with radiation of pain that is sharp in character to the l umbar spine and down the lower extremity. MRI of the bilateral hips from 12/14/21 reviewed. Pain is provoked by standing or walking for periods of 5 minutes or more. Pain is alleviated with medications, injections which provided little to no relief, heat which worsens the pain, physical therapy years ago which provided no relief, daily home stretching regimen and rest. Interventional pain procedures completed include LESI L4-L5 x 1, LESI L5-S1 1. Patient is currently on Robaxin, Tylenol. Patient denies any side effects of the medication(s), denies excessive drowsiness or sleepiness, denies suicidal ideation and reports that the current pain medication is helping to control the pain and improve activities of daily living. Patient denies any motor or sensory deficits. Patient denies any fever or night sweats, denies any change in the bowel movements or urination. Physical Examination: -Constitutional: Cooperative. Not in acute distress . -HEENT: Neck is supple. No lymphadenopathy. No thyromegaly. Normal thyroid size. Eyes: No ptosis , no icterus, no photophobia. ENT: No auditory deficits. Normal oropharynx. No Thrush. - Respiratory: Chest clear to auscultations bilaterally. No wheezing. No rhonchi. - Cardiovascular: Regular rate and rhythm. S1 / S2 , no S3 , no S4. - Gastrointestinal: Abdomen soft no tenderness. Bowel sounds positive in all four quadrants. No organomegaly. - Genitourinary: Deferred. - Neurologic: Cranial nerve II to XII intact. No focal neurological deficits. - Psychatric: Alert & oriented x 3. Matching mood & appropriate affect. Judgment and insight intact. - Lymphatic: No Lymphadenopathy. - Musculoskeletal: Cervical spine: Muscle bulk/ tone/ strength in the bilateral upper extremities normal. Facet loading test cervical area positive. Lumbar spine: Motor bulk/ tone/ strength lower extremities , thigh and legs : 5/5 Deep tendon reflexes : Normal Knee Jerk. Normal Ankle Jerk . Vertebral body tenderness to palpation over Lumbar Facet Loading Test positive Straight Leg Raise: positive at 30 degrees right side/ left side Gaenslen's Test positive Sacral spine : Severe tenderness over the Sacroiliac joint: right side / left side Range of motion: Flexion of the lumbar spine <60 degrees Range of motion: Extension of the lumbar spine <20 degrees Gaenslen's Test positive Bryon test: positive right side / left side Imaging: MRI without contrast of the BL hips from 12/14/21 reviewed. Assessment and plan: Chronic low back pain secondary to lumbar degenerative disc disease , lumbar spondylosis with facet arthropathy without myelopathy, BL Hip OA. Recommendation of bilateral trochanteric injections. May need a series of injections, up to 5 within a one-year period, to obtain optimal pain relief. Risks, benefits of procedure discussed and patient verbalized understanding. Denies anticoagulant use. Admits to medical history of diabetes. Protocol for discontinuation/ continuation of medications garth procedure discussed. All patient questions answered MAPS reviewed and it was appropriate. I have spent 31 minutes on patient care today. Dr Chandler was available by phone for the evaluation of this patient. The time was used to review the medical records including relevant urine studies and Prescription history (MAPs), review of the available imaging, evaluation and examination of the patient, coordination of care with the medical staff and if applicable referring physicians, as well as creation of the medical record Objective - Vital Signs Vital signs: Vital Signs Temp 98.7 F 01/24/22 10:41 Pulse 86 01/24/22 10:41 Resp 18 01/24/22 10:41 BP 129/66 01/24/22 10:41 Pulse Ox 98 01/24/22 10:41 Intake & Output 01/23/22 01/24/22 01/24/22 18:59 06:59 18:59 Weight 84.822 kg PQRS Measure Charge Sheet Mode of Arrival: Ambulatory - Pain Location Left Hip Non-Pharmacological Interventions: Inactivity, Position/Reposition Pharmacological Interventions: PRN Medication PQRS Narrative: Smoking Status Never smoker Blood Pressure 129/66 Pain Intensity [Left Hip] 8 Scale Used Numeric (1 - 10) Hx Alcohol Use (MH) No Home Medications: Ambulatory Orders Aspirin [Adult Low Dose Aspirin EC] 81 mg PO DAILY 01/20/18 Insuln Asp Prt/Insulin Aspart [NovoLOG MIX 70-30 VIAL] 18 units SQ BID 01/20/18 Latanoprost [Xalatan 0.005%] 1 drop BOTH EYES HS 01/20/18 Losartan-Hctz 50-12.5 mg [Hyzaar 50-12.5] 1 each PO BID 01/20/18 Metoprolol Tartrate [Lopressor] 50 mg PO BID 01/20/18 metFORMIN HCL [Glucophage] 1,000 mg PO BID 01/20/18 Atorvastatin [Lipitor] 20 mg PO DAILY 09/29/19 Multivit with Calcium,Iron,Min [Women's Multivitamin] 1 tab PO DAILY 09/29/19 Ascorbic Acid [Vitamin C] 500 mg PO DAILY 10/17/21 Ferrous Sulfate [Feosol] 325 mg PO DAILY 10/17/21 methocarbamoL [Methocarbamol] 500 mg PO BID 10/17/21
== END ==
LOC: PNWHC3 10:14
PROVIDERS: ATTEND Specialist
DX: M51.36 Other intervertebral disc degeneration, lumbar region (principal); M47.816 Spondylosis without myelopathy or radiculopathy, lumbar region; G89.29 Other chronic pain; Z88.0 Allergy status to penicillin; Z88.8 Allergy status to other drugs, medicaments and biological substances
CPT/HCPCS: 99211

== ENCOUNTER 2022-02-28 05:56 | Day surgery (SDC) | payer MEDICARE ==
[2022-02-27 12:01] VITALS: BMI 39.2
[2022-02-28] MEDS ORDERED: LIDOCAINE 1% (10MG/ML) FOR IV START INTRADERMA PRN (06:13)
[2022-02-28] MEDS ORDERED: LACTATED RINGERS 1,000 ML IV SCH (06:13)
[2022-02-28 06:36] LABS: Glucose,Whole Blood 134 mg/dL (75-99)
[2022-02-28 06:39] VITALS: RESP 16; TEMP 97.8
[2022-02-28] MEDS ORDERED: methylPREDNISolone ACETATE 40 MG/ML 1 ML VIAL ONE (06:50)
[2022-02-28] MEDS ORDERED: ROPIVACAINE 5MG/ML 20ML VIAL ONE (06:50)
[2022-02-28] MEDS ORDERED: fentaNYL (PF) 50 MCG/ML 2 ML AMP ONE (06:50)
[2022-02-28] MEDS ORDERED: MIDAZOLAM 2 MG/2 ML VIAL ONE (06:50)
--- NOTE | 2022-02-28 07:11 | P.PCN ---
Date of Procedure: 02/28/22 Procedure(s) Performed: Pre OP diagnoses=1- bilateral trochanteric bursitis .2-lumbar degenerative disc disease Postoperative diagnosis= 1-bilateral trochanteric bursitis.2-lumbar degenerative disc disease Operation= bilateral trochanteric bursa steroid injection under fluoroscopy guidance.(The fluoroscopy images on file in Radiology department ) Anesthesia= moderate sedation with IV , Versed 2 mg and fentanyl 100 micrograms . Complications= none . Description of the procedure= patient had history of severe low back pain and hip pain secondary to trochanteric bursitis for this reason patient was a good candidate to have bilateral trochanteric bursa steroid injection which hopefully it will help his pain, risks and benefits of the procedure including but not limited to risk of infection and bleeding and not complete pain relief and ALLERGIC reaction to medication discussed with the patient and the alternative also discussed with the patient and he agreed with the preceding taken to the operating room placed in prone position or standard monitors applied patient and after induction of anesthesia the back and the hip area prepped with chlorhexidine 3 times, and under sterile technique using 25-gauge needle for skin and subcutaneous tissue infiltration was first admitted the right trochanteric bursa injection at 22-gauge Quincke-type spinal needle advanced slowly under fluoroscopy and placed in the right trochanteric bursa needle placement confirmed with AP and lateral view and after appropriate needle placement confirmed under fluoroscopy 5 ML of Ropivacaine 0.5% mixed with 20 mg of Depo-medrol injected after negative aspiration for heme and there was no CSF and there was no paresthesia during the injection and needle removed and a dressing applied and the same procedure repeated at the left side, patient tolerated the procedure well without any complication and she will follow up with the pain clinic in a few weeks and patient discharged home in stable condition
[2022-02-28] MEDS ORDERED: IV FLUID CONTINUATION 1,000 ML IV ONE (07:16)
[2022-02-28 07:41] VITALS: BP 111/73; PULSE 83
--- NOTE | 2022-02-28 07:41 | FL ---
EXAMINATION TYPE: FL guided pain mgmt statistic DATE OF EXAM: 02/28/2022 CLINICAL HISTORY: Bilateral hip pain. TECHNIQUE: Fluoroscopy. COMPARISON: None. FINDINGS: Fluoroscopic guidance was provided during pain relief procedure performed by Dr. Chandler . A total of 5 seconds of fluoroscopic time was utilized during the procedure and two spot images ar e acquired. Images acquired shows needle localization at the level of bilateral greater trochanters. IMPRESSION: As Above.
== END 2022-02-28 07:48 | disposition home or self-care (01) ==
LOC: ORPAIN 05:56
PROVIDERS: ATTEND Specialist
DX: M70.62 Trochanteric bursitis, left hip (principal); M70.61 Trochanteric bursitis, right hip
CPT/HCPCS: 20610; J2250; J1030; J3010; J2795; 99152

== ENCOUNTER → 2022-03-21 | Outpatient (CLI) | payer MEDICARE ==
--- NOTE | 2022-03-21 11:54 | P.PAINPG ---
PQRS Measure Charge Sheet Comment: A 66 yr old female with a history of severe and chronic low back pain secondary to lumbar degenerative disc diseases and lumbar spondylosis with facet arthropathy presents today for evaluation status post BL trochanteric injections. She states she experienced 80% pain relief for 2 weeks status post procedure until she suffered a left hip "popping" sensation standing up from a sitting position. Pain level in the left hip is 7 out of 10 in intensity, dull, achy in the anterior aspects of the acetabulofemoral joint without radiation of pain. Pain is provoked by weight bearing activity of the left lower extremity. Pain is alleviated with medications, topicals, injections, physical therapy in the past which provoked pain, chiropractic treatments in the past which provided no relief, daily home stretching regimen, massage therapy in the past without relief, repositioning and rest. Interventional pain procedures completed include BL trochanteric injection Patient is currently on aspirin OTC Patient denies any side effects of the medication(s), denies excessive drowsiness or sleepiness, denies suicidal ideation and reports that the current pain medication is helping to control the pain and improve activities of daily living. Patient denies any motor or sensory deficits. Patient denies any fever or night sweats, denies any change in the bowel movements or urination. Physical Examination: -Constitutional: Cooperative. Not in acute distress . - Neurologic: Cranial nerve II to XII intact. No focal neurological deficits. - Psychatric: Alert & oriented x 3. Matching mood & appropriate affect. Judgment and insight intact. - Musculoskeletal: Cervical spine: Muscle bulk/ tone/ strength in the bilateral upper extremities normal Vertebral body tenderness to palpation over Spurling test positive Distraction test positive Facet loading test positive Thoracic spine Muscle bulk / tone/ strength in the bilateral paraspinal muscles normal Vertebral body tender to palpation over Facet loading test positive Lumbar spine: Motor bulk/ tone/ strength lower extremities , thigh and legs : 5/5 Deep tendon reflexes : Normal Knee Jerk. Normal Ankle Jerk . Vertebral body tenderness to palpation over Lumbar Facet Loading Test positive Straight Leg Raise: positive at 30 degrees right side/ left side Gaenslen's Test positive Sacral spine : +L anterior acetabulofemoral joint TTP. Pain with abduction. Severe tenderness over the Sacroiliac joint: right side / left side Range of motion: Flexion of the lumbar spine <60 degrees Range of motion: Extension of the lumbar spine <20 degrees Gaenslen's Test positive Seth's Test positive Bryon test: positive right side / left side Thigh Thrust Test Sacral Thrust Test Assessment and plan: Chronic low back pain secondary to lumbar degenerative disc disease , lumbar spondylosis with facet arthropathy without myelopathy Recommendation of L trochanteric injection. Pt appears to have re injured the L trochanteric bursa with the aforementioned stated maneuver when she felt a "pop" sensation. Risks, benefits of procedure discussed and pt verbalized un derstanding. Admits to anticoagulant use or medical history of diabetes. Protocol for discontinuation/ continuation of medications garth procedure discussed. All patient questions answered I have spent less than 30 minutes on patient care today. Dr Chandler was available by phone for the evaluation of this patient. The time was used to review the medical records including relevant urine studies and Prescription history (MAPs), review of the available imaging, evaluation and examination of the patient, coordination of care with the medical staff and if applicable referring physicians, as well as creation of the medical record PQRS Narrative: Smoking Status Never smoker Hx Alcohol Use (MH) No Home Medications: Ambulatory Orders Aspirin [Adult Low Dose Aspirin EC] 81 mg PO DAILY 01/20/18 Insuln Asp Prt/Insulin Aspart [NovoLOG MIX 70-30 VIAL] 18 units SQ BID 01/20/18 Latanoprost [Xalatan 0.005%] 1 drop BOTH EYES HS 01/20/18 Losartan-Hctz 50-12.5 mg [Hyzaar 50-12.5] 1 each PO BID 01/20/18 Metoprolol Tartrate [Lopressor] 50 mg PO BID 01/20/18 metFORMIN HCL [Glucophage] 1,000 mg PO BID 01/20/18 Atorvastatin [Lipitor] 20 mg PO DAILY 09/29/19 Multivit with Calcium,Iron,Min [Women's Multivitamin] 1 tab PO DAILY 09/29/19 Ascorbic Acid [Vitamin C] 500 mg PO DAILY 10/17/21 Ferrous Sulfate [Feosol] 325 mg PO DAILY 10/17/21 methocarbamoL [Methocarbamol] 500 mg PO BID 10/17/21 Controlled Substance Measures - Controlled Substance Measures Is patient prescribed a controlled substance at discharge?: No
[2022-03-21 12:31] VITALS: BP 118/76; PULSE 91; RESP 18
== END ==
LOC: PNWHC3 10:36
PROVIDERS: ATTEND Specialist
DX: M51.36 Other intervertebral disc degeneration, lumbar region (principal); M47.816 Spondylosis without myelopathy or radiculopathy, lumbar region; G89.29 Other chronic pain; E11.9 Type 2 diabetes mellitus without complications; Z79.4 Long term (current) use of insulin; Z79.84 Long term (current) use of oral hypoglycemic drugs; Z88.0 Allergy status to penicillin; Z88.8 Allergy status to other drugs, medicaments and biological substances
CPT/HCPCS: 99211

== ENCOUNTER → 2022-04-03 | Outpatient (CLI) | payer MEDICARE ==
[~2022-04-03] MED LIST: REGADENOSON 0.4 MG/5 ML SYRINGE IV PRN
--- NOTE | 2022-04-03 07:55 | US ---
EXAMINATION TYPE: US carotid duplex BILAT DATE OF EXAM: 04/03/2022 COMPARISON: Carotid ultrasound July 14, 2017 CLINICAL HISTORY: I25.10 CAD, I65.23 Carotid stenosis. EXAM MEASUREMENTS: RIGHT: Peak Systolic Velocity (PSV) cm/sec ----- Right CCA: 88.8 ----- Right ICA: 74.4 ----- Right ECA: 43.5 ICA/CCA ratio: 0.8 RIGHT: End Diastole cm/sec ----- Right CCA: 28.0 ----- Right ICA: 28.2 ----- Right ECA: 19.9 LEFT: Peak Systolic Velocity (PSV) cm/sec ----- Left CCA: 91.6 ----- Left ICA: 84.9 ----- Left ECA: 74.6 ICA/CCA ratio: 0.9 LEFT: End Diastole cm/sec ----- Left CCA: 31.1 ----- Left ICA: 29.9 ----- Left ECA: 9.5 VERTEBRALS (direction of flow): Right Vertebral: Antegrade Left Vertebral: Antegrade Rhythm: Normal Patient has short thick neck with deep vessels, technically difficult exam with limited views of dist al ICA. Mild to moderate atherosclerotic changes with no significant velocity increases. IMPRESSION: No hemodynamically significant stenosis in either internal carotid artery. No significan t change from prior. Criteria for Assigning % of Stenosis / Diameter reduction (Estimation based on the indirect measurements of the internal carotid artery velocities (ICA PSV). 1. Normal (no stenosis)=ICA PSV < 125 cm/s: ratio < 2.0: ICA EDV<40 cm/s. 2. Less than 50% stenosis=ICA PSV < 125 cm/s: ratio < 2.0: ICA EDV<40 cm/s. 3. 50 to 69% stenosis=ICA PSV of 125 to 230 cm/s: ration 2.0 ? 4.0: ICA EDV 40-100 cm/s. 4. Greater than 70% stenosis to near occlusion= ICA PSV > 230 cm/s: ratio > 4.0: ICA EDV > 100 cm/s. 5. Near occlusion= ICA PSV velocities may be low or undetectable: variable ratio and ICA EDV. 6. Total occlusion=unable to detect flow.
--- NOTE | 2022-04-03 10:30 | CA ---
Lexiscan Nuclear Stress Test Report Name: Mery Yao Exam Date: 04/03/2022 09:33 Exam Location: [facility] Ht (in): 58 Wt (lb): 188 BSA: 1.77 Ordering Phys: Inga Tabor MD Referring Phys: Sharona, Technologist: Dm Ludwig Age: 67 Gender: F : 1955 Procedure CPT: Indications: I25.10 CAD ICD-10 Codes: Patient History: Shortness of breath and palpitations Medications: Several Meds past 24 hrs: Pretest Chest Pain: STRESS TEST Lexiscan Protocol Exercise Duration (min:sec): 02:[address] Depressions (mm): Angina Score: Martinez Score: Resting HR (bpm): 81 Peak HR (bpm): 104 Resting BP (mmHg): 121 / 69 Peak BP (mmHg): 127 / 68 MPHR: 152 Target HR: 129 % MPHR: 68 METS: 1.0 Total Dose: Peak Dose: Atropine: Double Product: 09106 BP Response: Stress Termination: Infusion complete Stress Symptoms: Dyspnea Stress Summary: ECG ANALYSIS Resting ECG: Stress ECG: CONCLUSIONS Nondiagnostic electrocardiogram in response to Lexiscan Please follow-up on the Cardiolite portion Dr. Azam Lewis MD (Electronically Signed) Final Date: 03 April 2022 10:29
--- NOTE | 2022-04-03 12:15 | NM ---
EXAMINATION TYPE: NM stress lexiscan cardiolite DATE OF EXAM: 04/03/2022 COMPARISON: Prior stress test January 14, 2018 HISTORY: Coronary artery disease. TECHNIQUE: After the intravenous administration of 10 mCi Tc 99m Sestamibi - Cardiolite resting SPEC T images acquired 60 minutes post injection. The patient received 0.4mg Lexiscan, 25.1 mCi Tc 99m Sestamibi - Stress images obtained [address] injection FINDINGS: Review of stress and rest SPECT images demonstrates diminished radiotracer uptake anterior left ventr icular wall similar to prior though more prominent on current study especially on short axis and vert ical long axis views suspicious for old infarct. There appears to be increased radiotracer uptake on rest images versus stress images involving the anterior wall seen best on vertical long axis views an d polar maps. Area of acute ischemia cannot be excluded. Gated analysis shows estimated left ventricu lar ejection fraction of 65% IMPRESSION: Suspect old infarct. Some garth-infarct reversible ischemia anterior left ventricular wall cannot be excluded. Need to further investigate by direct catheter angiogram should be based on degr ee of clinical suspicion and clinical correlation.
== END | disposition home or self-care (01) ==
LOC: RADUSWWP 06:47
PROVIDERS: ATTEND Internal Medicine
DX: I65.23 Occlusion and stenosis of bilateral carotid arteries (principal); I25.10 Atherosclerotic heart disease of native coronary artery without angina pectoris
CPT/HCPCS: 93017; 93880; 78452; A9500; J2785

== ENCOUNTER 2022-04-18 06:38 | Day surgery (SDC) | payer MEDICARE ==
[2022-04-17 14:25] VITALS: BMI 39.2
[2022-04-18 07:22] VITALS: RESP 16; TEMP 98.3
[2022-04-18] MEDS ORDERED: LACTATED RINGERS 1,000 ML IV ONE (07:22)
[2022-04-18 07:28] LABS: Glucose,Whole Blood 139 mg/dL (70-110)
[2022-04-18] MEDS ORDERED: fentaNYL (PF) 50 MCG/ML 2 ML AMP ONE (08:03)
[2022-04-18] MEDS ORDERED: ROPIVACAINE 5 MG/ML 20 ML AMPULE ONE (08:03)
[2022-04-18] MEDS ORDERED: MIDAZOLAM 2 MG/2 ML VIAL ONE (08:03)
[2022-04-18] MEDS ORDERED: methylPREDNISolone ACETATE 40 MG/ML 1 ML VIAL ONE (08:03)
[2022-04-18] MEDS ORDERED: LACTATED RINGERS 1,000 ML IV SCH (08:14)
[2022-04-18] MEDS ORDERED: LIDOCAINE 1% (10MG/ML) FOR IV START INTRADERMA PRN (08:14)
--- NOTE | 2022-04-18 08:14 | P.PCN ---
Date of Procedure: 04/18/22 Procedure(s) Performed: Pre OP diagnoses=1- bilateral trochanteric bursitis .2-lumbar degenerative disc disease Postoperative diagnosis= 1-bilateral trochanteric bursitis.2-lumbar degenerative disc disease Operation= bilateral trochanteric bursa steroid injection under fluoroscopy guidance.(The fluoroscopy images on file in Radiology department ) Anesthesia= monitored anesthesia care as per anesthesia department. Complications= none . Description of the procedure= patient had history of severe low back pain and hip pain secondary to trochanteric bursitis for this reason patient was a good candidate to have bilateral trochanteric bursa steroid injection which hopefully it will help his pain, risks and benefits of the procedure including but not limited to risk of infection and bleeding and not complete pain relief and ALLERGIC reaction to medication discussed with the patient and the alternative also discussed with the patient and he agreed with the preceding taken to the operating room placed in prone position or standard monitors applied patient and after induction of anesthesia the back and the hip area prepped with chlorhexidine 3 times, and under sterile technique using 25-gauge needle for skin and subcutaneous tissue infiltration was first admitted the right troc hanteric bursa injection at 22-gauge Quincke-type spinal needle advanced slowly under fluoroscopy and placed in the right trochanteric bursa needle placement confirmed with AP and lateral view and after appropriate needle placement confirmed under fluoroscopy 5 ML of Ropivacaine 0.5% mixed with 20 mg of Depo- medrol injected after negative aspiration for heme and there was no CSF and there was no paresthesia during the injection and needle removed and a dressing applied and the same procedure repeated at the left side, patient tolerated the procedure well without any complication and she will follow up with the pain clinic in a few weeks and patient discharged home in stable condition
[2022-04-18] MEDS ORDERED: IV FLUID CONTINUATION 1,000 ML IV ONE (08:18)
--- NOTE | 2022-04-18 08:24 | FL ---
EXAMINATION TYPE: FL guided pain mgmt statistic DATE OF EXAM: 04/18/2022 FLUOROSCOPY Fluoroscopy time of 2 seconds was used during hip injection. 2 image/s document/s the procedure.
[2022-04-18 08:30] LABS: Glucose,Whole Blood 137 mg/dL (70-110)
[2022-04-18 08:49] VITALS: BP 117/68; PULSE 79
== END 2022-04-18 08:57 | disposition home or self-care (01) ==
LOC: ORPAIN 06:38
PROVIDERS: ATTEND Specialist
DX: M70.62 Trochanteric bursitis, left hip (principal); M70.61 Trochanteric bursitis, right hip; M51.36 Other intervertebral disc degeneration, lumbar region; I10 Essential (primary) hypertension; E11.69 Type 2 diabetes mellitus with other specified complication; E78.5 Hyperlipidemia, unspecified; M79.7 Fibromyalgia; Z88.0 Allergy status to penicillin; Z88.8 Allergy status to other drugs, medicaments and biological substances; Z79.82 Long term (current) use of aspirin; Z79.4 Long term (current) use of insulin; Z79.899 Other long term (current) drug therapy
CPT/HCPCS: 20610; J2250; J1030; J3010; J2795

== ENCOUNTER → 2022-04-19 | Outpatient (CLI) | payer MEDICARE ==
--- NOTE | 2022-04-20 09:36 | CT ---
EXAMINATION TYPE: CT abdomen pelvis w con CT DLP: 1402 mGycm, Automated exposure control for dose reduction was used. DATE OF EXAM: 04/19/2022 5:51 PM COMPARISON: None. 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 Coronal and sagittal reformats were performed. FINDINGS: LOWER CHEST: Bibasilar subsegmental atelectasis. ABDOMEN LIVER: Diffusely hypoattenuating parenchyma. No concerning lesions. GALLBLADDER AND BILE DUCTS: Unremarkable. PANCREAS: Unremarkable. SPLEEN: Unremarkable. ADRENAL GLANDS: Unremarkable. KIDNEYS AND URETERS: No evidence of hydronephrosis or renal calculus. No suspicious lesions. PELVIS BLADDER: Incompletely distended but grossly unremarkable. REPRODUCTIVE: The uterus is surgically absent. No suspicious adnexal masses. ABDOMEN & PELVIS STOMACH AND BOWEL: Small hiatal hernia, duodenum is unremarkable. No focal wall thickening or surroun ding inflammatory changes. The appendix is within normal limits. Enteric contrast reaches the cecum. Only the colon approximates the vaginal cuff on this examination without enteric contrast. No definit sp loss of fat plane with the vaginal cuff. No gross evidence of fistula within the limitations. No evidence of bowel obstruction. PERITONEUM: No evidence of pneumoperitoneum or free fluid. 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 VASCULATURE: Mild atherosclerotic calcifications are present throughout the abdominal aorta and its b ranches. No evidence of aortic aneurysm. MUSCULOSKELETAL: No acute osseous abnormalities. Mild degenerative changes of the lumbar spine most p ronounced at L4-L5 and L5-S1. LYMPH NODES: No gross evidence for lymphadenopathy. SOFT TISSUE/ABDOMINAL WALL: Unremarkable IMPRESSION: No gross evidence of colovaginal fistula within limitation of the exam. No contrast is demonstrated w ithin the colon adjacent to the vaginal cuff. No definitive abutment with the vaginal cuff. If there is continued clinical concern consider repeat CT pelvic examination with rectal contrast.
== END | disposition home or self-care (01) ==
LOC: RADCTMAIN 15:26
PROVIDERS: ATTEND Surgery
DX: N82.3 Fistula of vagina to large intestine (principal)
CPT/HCPCS: 74177; 82565; 84520

== ENCOUNTER → 2022-05-06 | Outpatient (CLI) | payer MEDICARE ==
[2022-05-06 11:01] VITALS: BP 99/69; PULSE 88; RESP 18; TEMP 98.6
--- NOTE | 2022-05-06 14:20 | P.PAINPG ---
PQRS Measure Charge Sheet Comment: A 67 yr old female with a history of severe and chronic low back pain secondary to lumbar degenerative disc diseases and lumbar spondylosis with facet arthropathy presents today for evaluation s/p BL Trochanteric injection. Pt states she experienced 80% pain relief x 3-4 weeks s/p procedure. Pain level is currently at 2/10 in intensity, but escalates as high as 8/10 w standing for periods of 15 min or more. Pain is constant, sore & achy in character without radiation of pain. Pain is alleviated with medications (Tylenol OTC), injections, ice, home stretching regimen, repositioning and rest. PT in the past has provoked pain and she will follow home pain mgmt modalities to relieve pain for the time being. Interventional pain procedures completed include BL Trochanteric Bursitis x 2 Patient is currently on Tylenol OTC Patient denies any side effects of the medication(s), denies excessive drow siness or sleepiness, denies suicidal ideation and reports that the current pain medication is helping to control the pain and improve activities of daily living. Patient denies any motor or sensory deficits. Patient denies any fever or night sweats, denies any change in the bowel movements or urination. Physical Examination: -Constitutional: Cooperative. Not in acute distress . - Neurologic: Cranial nerve II to XII intact. No focal neurological deficits. - Psychatric: Alert & oriented x 3. Matching mood & appropriate affect. Judgment and insight intact. - Musculoskeletal: Cervical spine: Muscle bulk/ tone/ strength in the bilateral upper extremities normal Vertebral body tenderness to palpation over Spurling test positive Distraction test positive Facet loading test positive Thoracic spine Muscle bulk / tone/ strength in the bilateral paraspinal muscles normal Vertebral body tender to palpation over Facet loading test positive Lumbar spine: Motor bulk/ tone/ strength lower extremities , thigh and legs : 5/5 Deep tendon reflexes : Normal Knee Jerk. Normal Ankle Jerk . Vertebral body tenderness to palpation over Lumbar Facet Loading Test positive Straight Leg Raise: positive at 30 degrees right side/ left side Gaenslen's Test positive Sacral spine : Severe tenderness over the Sacroiliac joint: right side / left side Range of motion: Flexion of the lumbar spine <60 degrees Range of motion: Extension of the lumbar spine <20 degrees Gaenslen's Test positive Seth's Test positive Bryon test: positive right side / left side Thigh Thrust Test Sacral Thrust Test Assessment and plan: Chronic low back pain secondary to lumbar degenerative disc disease , lumbar spondylosis with facet arthropathy without myelopathy Pt exhibited sufficient and optimal pain relief w prior BL Trochanteric procedures. She will follow home pain mgmt remedies at this time and may return to our clinic on an as needed basis. All patient questions answered MAPS reviewed and it was appropriate. I have spent less than 30 minutes on patient care today. Dr Chandler was available by phone for the evaluation of this patient. The time was used to review the medical records including relevant urine studies and Prescription history (MAPs), review of the available imaging, evaluation and examination of the patient, coordination of care with the medical staff and if applicable referring physicians, as well as creation of the medical record - Pain Location Bilateral Hip Non-Pharmacological Interventions: Home Exercise, Ice, Sitting, Stretching Pharmacological Interventions: Epidural, PRN Medication PQRS Narrative: Smoking Status Never smoker Hx Alcohol Use (MH) No Home Medications: Ambulatory Orders Aspirin [Adult Low Dose Aspirin EC] 81 mg PO DAILY 01/20/18 Insuln Asp Prt/Insulin Aspart [NovoLOG MIX 70-30 VIAL] 18 units SQ BID 01/20/18 Latanoprost [Xalatan 0.005%] 1 drop BOTH EYES HS 01/20/18 Losartan-Hctz 50-12.5 mg [Hyzaar 50-12.5] 1 each PO BID 01/20/18 Metoprolol Tartrate [Lopressor] 50 mg PO BID 01/20/18 metFORMIN HCL [Glucophage] 1,000 mg PO BID 01/20/18 Atorvastatin [Lipitor] 20 mg PO DAILY 09/29/19 Multivit with Calcium,Iron,Min [Women's Multivitamin] 1 tab PO DAILY 09/29/19 Ascorbic Acid [Vitamin C] 500 mg PO DAILY 10/17/21 Ferrous Sulfate [Feosol] 325 mg PO DAILY 10/17/21 methocarbamoL [Methocarbamol] 500 mg PO BID 10/17/21 Controlled Substance Measures - Controlled Substance Measures Is patient prescribed a controlled substance at discharge?: No
== END ==
LOC: PNWHC3 10:41
PROVIDERS: ATTEND Specialist
DX: M51.36 Other intervertebral disc degeneration, lumbar region (principal); M47.816 Spondylosis without myelopathy or radiculopathy, lumbar region; G89.29 Other chronic pain; Z88.0 Allergy status to penicillin; Z88.8 Allergy status to other drugs, medicaments and biological substances
CPT/HCPCS: 99211

== ENCOUNTER → 2022-09-26 | Outpatient (CLI) | payer MEDICARE ==
--- NOTE | 2022-09-29 13:06 | MM ---
Reason for Exam: Screening (asymptomatic). Last screening mammogram was performed 12 month(s) ago. Patient History: Menarche at age 10. First Full-Term at age 18. Hysterectomy at age 27. Postmenopausal. Risk Values: Denise 5 year model risk: 1.4%. NCI Lifetime model risk: 4.4%. Prior Study Comparison: 08/30/2019 Bilateral Screening Mammogram, [facility]. 09/04/2020 Bilateral Screening Mammogram, [facility]. 09/18/2021 Bilateral Screening Mammogram, [facility]. Tissue Density: There are scattered fibroglandular densities. Findings: Analyzed By CAD. Unchanged dystrophic calcifications anterior upper quadrant left breast. Area of asymmetric density superior right MLO view at a middle depth appears more defined and further evaluation is recommended. Not clearly identified on the CC view. Otherwise, no significant change. Overall Assessment: Incomplete: need additional imaging evaluation, BI-RAD 0 Management: Special View Mammogram of the right breast. Including spot 3-D MLO and 3-D lateral views. Consider 3-D CC rolled view as well. If any persisting abnormality, targeted right breast ultrasound. [facility] will attempt to contact patient to return for supplemental views and ultrasound if indicated. Electronically signed and approved by: José Wagner M.D. Radiologist
== END | disposition home or self-care (01) ==
LOC: RADMAMWWP 13:07
PROVIDERS: ATTEND Internal Medicine
DX: Z12.31 Encounter for screening mammogram for malignant neoplasm of breast (principal); Z78.0 Asymptomatic menopausal state
CPT/HCPCS: 77067

== ENCOUNTER → 2022-10-02 | Outpatient (CLI) | payer MEDICARE ==
--- NOTE | 2022-10-02 11:32 | MM ---
Reason for Exam: Additional evaluation requested from abnormal screening. Last screening mammogram was performed less than 1 month ago. Patient History: Menarche at age 10. First Full-Term at age 18. Hysterectomy at age 27. Postmenopausal. Risk Values: Denise 5 year model risk: 1.4%. NCI Lifetime model risk: 4.4%. Prior Study Comparison: 04/24/2017 Left Diagnostic Mammogram, [facility]. 01/13/2018 Left Diagnostic Mammogram, [facility]. 05/25/2018 Bilateral Diagnostic Mammogram, [facility]. 08/30/2019 Bilateral Screening Mammogram, [facility]. 09/04/2020 Bilateral Screening Mammogram, [facility]. 09/18/2021 Bilateral Screening Mammogram, [facility]. 09/26/2022 Bilateral MG screening mammo w CAD, [facility]. Tissue Density: Right: There are scattered fibroglandular densities. Findings: Analyzed By CAD. Pattern appears stable. No suspicious focal densities evident on compression view. Mediolateral view appears unremarkable. No corresponding abnormality is identified on the cranial caudal projections. Findings may be related to a summation density. Overall Assessment: Benign, BI-RAD 2 Management: Screening Mammogram of both breasts in 1 year. A clinical breast exam by your physician is recommended on an annual basis and results should be correlated with mammographic findings. This exam should not preclude additional follow-up of suspicious palpable abnormalities. Results were given to the patient verbally at the time of exam. Electronically signed and approved by: Luan Spivey D.O. Radiologis
== END | disposition home or self-care (01) ==
LOC: RADMAMWWP 10:07
PROVIDERS: ATTEND Internal Medicine
DX: R92.8 Other abnormal and inconclusive findings on diagnostic imaging of breast (principal); Z78.0 Asymptomatic menopausal state
CPT/HCPCS: 77065

== ENCOUNTER 2023-08-19 05:49 | Day surgery (SDC) | payer MEDICARE ==
[2023-08-19] MEDS ORDERED: LACTATED RINGERS 1,000 ML IV SCH (05:56)
[2023-08-19 06:59] VITALS: TEMP 97.9
[2023-08-19] MEDS ORDERED: LACTATED RINGERS 1,000 ML IV ONE (07:05)
[2023-08-19 07:10] LABS: Glucose,Whole Blood 149 mg/dL (70-110)
[2023-08-19] MEDS ORDERED: PROPOFOL 10 MG/ML 20 ML VIAL IV ONE (07:19)
--- NOTE | 2023-08-19 07:46 | P.PCN ---
Date of Procedure: 08/19/23 Procedure(s) Performed: BRIEF HISTORY: Patient is a 68-year-old pleasant female scheduled for an elective colonoscopy as a part of screening for colon cancer and family history of colon cancer.. Her brother was diagnosed with colon cancer at age 52. PROCEDURE PERFORMED: Colonoscopy with snare polypectomy. PREOPERATIVE DIAGNOSIS: Screening for colon cancer and family history of colon cancer. IV sedation per Anesthesia. PROCEDURE: After informed consent was obtained, the patient, was brought into the endoscopy unit. IV sedation was administered by Anesthesia under continuous monitoring. Digital rectal examination was normal. Initially the Olympus CF-160 flexible video colonoscope was then inserted in the rectum, gradually advanced into the cecum without any difficulty. Careful examination was performed as the scope was gradually being withdrawn. Ileocecal valve and the appendiceal orifice were visualized and appeared normal. Prep was excellent. Mucosa of the cecum, ascending colon, a normal. In the transverse colon there was a 1 cm brought this polyp removed by snare polypectomy. Rest of the transverse colon, descending colon, sigmoid colon, and rectum appeared normal. The rectum; a 20 cm from the anal was there was another 1 m polyp that was removed by snare polypectomy. Retroflexion was performed in the rectum and no lesions were seen. The patient tolerated the procedure well. IMPRESSION: 1 cm broad-based transverse colon polyp status post polypectomy 1 cm broad-based rectal sigmoid polyp status post polypectomy. Recommendations. Findings of this examination were discussed with the patient as well as her family. She was advised to follow with the biopsy results. If the biopsy reveals adenoma she can have a repeat colonoscopy in 3 years..
[2023-08-19 08:26] VITALS: BP 105/71; PULSE 111
== END 2023-08-19 08:30 | disposition home or self-care (01) ==
LOC: ORWHC2ENDO 05:49
PROVIDERS: ATTEND Internal Medicine Gastroenterology
DX: Z12.11 Encounter for screening for malignant neoplasm of colon (principal); D12.5 Benign neoplasm of sigmoid colon; Z80.0 Family history of malignant neoplasm of digestive organs; Z88.0 Allergy status to penicillin; Z79.899 Other long term (current) drug therapy; I48.91 Unspecified atrial fibrillation; J44.9 Chronic obstructive pulmonary disease, unspecified; E11.9 Type 2 diabetes mellitus without complications; Z98.890 Other specified postprocedural states
CPT/HCPCS: 45385; J2704; 88305

== ENCOUNTER → 2023-10-03 | Outpatient (CLI) | payer MEDICARE ==
--- NOTE | 2023-10-03 13:08 | MM ---
Reason for Exam: Screening (asymptomatic). Last mammogram was performed 1 year(s) and 1 month(s) ago. Patient History: Menarche at age 10. First Full-Term at age 18. Hysterectomy at age 27. Postmenopausal. Risk Values: Denise 5 year model risk: 1.7%. NCI Lifetime model risk: 5.1%. Prior Study Comparison: 09/18/2021 Bilateral Screening Mammogram, [facility]. 09/26/2022 Bilateral MG screening mammo w CAD, [facility]. 10/02/2022 Right MG work up mamm w CAD RT, [facility]. Tissue Density: There are scattered fibroglandular densities. Findings: Analyzed By CAD. There is no suspicious group of microcalcifications or new suspicious mass. Overall Assessment: Negative, BI-RAD 1 Management: Screening Mammogram of both breasts in [address] [facility] will attempt to contact patient to return for supplemental views and ultrasound if indicated. Patient should continue monthly self-breast exams. A clinical breast exam by your physician is recommended on an annual basis. This exam should not preclude additional follow-up of suspicious palpable abnormalities. Note on Denise scores and lifetime risk: 1. A Denise score greater than 3% is considered moderate risk. If this is the case, consider specialist referral to assess eligibility for a risk reducing agent. 2. If overall lifetime risk for the development of breast cancer is 20% or higher, the patient may qualify for future screening with alternating mammogram and breast MRI. Electronically signed and approved by: Gabriel Christine DO
== END | disposition home or self-care (01) ==
LOC: RADMAMWWP 11:03
PROVIDERS: ATTEND Internal Medicine
DX: Z12.31 Encounter for screening mammogram for malignant neoplasm of breast (principal); Z78.0 Asymptomatic menopausal state
CPT/HCPCS: 77063; 77067

== ENCOUNTER → 2024-05-07 | Outpatient (CLI) | payer MEDICARE | END | disposition home or self-care (01) | LOC: LABPRL 11:00 | PROVIDERS: ATTEND Internal Medicine | CPT/HCPCS: 80053; 80061; 82043; 82306; 82570; 83036; 83735; 84443; 84550; 85025; 87086 ==

== ENCOUNTER → 2024-10-13 | Outpatient (CLI) | payer MEDICARE ==
--- NOTE | 2024-10-13 13:27 | MM ---
Reason for Exam: Screening (asymptomatic). Last screening mammogram was performed 12 month(s) ago. Patient History: Menarche at age 10. First Full-Term at age 18. Hysterectomy at age 27. Postmenopausal. Risk Values: Denise 5 year model risk: 1.7%. NCI Lifetime model risk: 4.8%. Prior Study Comparison: 09/26/2022 Bilateral MG screening mammo w CAD, [facility]. 10/02/2022 Right MG work up mamm w CAD RT, [facility]. 10/03/2023 Bilateral MG 3D screening mammo w/cad, [facility]. Tissue Density: There are scattered areas of fibroglandular density. Findings: Analyzed By CAD. Multiple skin lesions are marked bilaterally. There is a group of benign-appearing dystrophic calcifications anteriorly in the left breast redemonstrated. There is no suspicious group of microcalcifications or new suspicious mass in either breast. Overall Assessment: Benign, BI-RAD 2 Management: Screening Mammogram of both breasts in 1 year. . Patient should continue monthly self-breast exams. A clinical breast exam by your physician is recommended on an annual basis. This exam should not preclude additional follow-up of suspicious palpable abnormalities. Note on Denise scores and lifetime risk: 1. A Denise score greater than 3% is considered moderate risk. If this is the case, consider specialist referral to assess eligibility for a risk reducing agent. 2. If overall lifetime risk for the development of breast cancer is 20% or higher, the patient may qualify for future screening with alternating mammogram and breast MRI. [facility], , 10/13/2024 1:24 PM. Electronically signed and approved by: Sharif Nelson M.D.
== END | disposition home or self-care (01) ==
LOC: RADMAMWWP 07:39
PROVIDERS: ATTEND Internal Medicine
DX: Z12.31 Encounter for screening mammogram for malignant neoplasm of breast (principal); R92.323 Mammographic fibroglandular density, bilateral breasts; Z78.0 Asymptomatic menopausal state
CPT/HCPCS: 77067

== ENCOUNTER → 2024-12-22 | Outpatient (CLI) | payer MEDICARE ==
--- NOTE | 2024-12-22 15:01 | US ---
EXAMINATION TYPE: US carotid duplex BILAT DATE OF EXAM: 12/22/2024 COMPARISON: Prior carotid ultrasound 2021 CLINICAL INDICATION: Female, 69 years old with history of [id number] CAROTID STENOSIS BILAT; stenosis Additional History: .... TECHNIQUE: Grayscale, color Doppler and spectral Doppler evaluation of the bilateral carotid systems and vertebral arteries. Indirect Doppler criteria was utilized. FINDINGS: EXAM MEASUREMENTS: RIGHT: Peak Systolic Velocity (PSV) cm/sec ----- Right CCA: 85.2 ----- Right ICA: 88.1 ----- Right ECA: 57 ICA/CCA ratio: 1.0 RIGHT: End Diastole cm/sec ----- Right CCA: 21.2 ----- Right ICA: 25.6 ----- Right ECA: 0 LEFT: Peak Systolic Velocity (PSV) cm/sec ----- Left CCA: 85.1 ----- Left ICA: 97.2 ----- Left ECA: 76.2 ICA/CCA ratio: 1.1 LEFT: End Diastole cm/sec ----- Left CCA: 28 ----- Left ICA: 32.6 ----- Left ECA: 21.3 VERTEBRALS (direction of flow): Right Vertebral: Antegrade Left Vertebral: Antegrade Rhythm: Normal LOG INSPECTOR NOTES: No significant stenosis seen Color Doppler imaging shows patency with blood flow throughout the carotid artery. Spectral waveforms are within normal limits. Moderate eccentric plaque left carotid bulb. IMPRESSION: Right: No hemodynamically significant stenosis. Left: Less than 50% stenosis of the carotid bifurcation. Criteria for Assigning % of Stenosis / Diameter reduction (Estimation based on the indirect measurements of the internal carotid artery velocities (ICA PSV). 1. Normal (no stenosis)=ICA PSV < 125 cm/s: ratio < 2.0: ICA EDV<40 cm/s. 2. Less than 50% stenosis=ICA PSV < 125 cm/s: ratio < 2.0: ICA EDV<40 cm/s. 3. 50 to 69% stenosis=ICA PSV of 125 to 230 cm/s: ration 2.0 ? 4.0: ICA EDV 40-100 cm/s. 4. Greater than 70% stenosis to near occlusion= ICA PSV > 230 cm/s: ratio > 4.0: ICA EDV > 100 cm/s. 5. Near occlusion= ICA PSV velocities may be low or undetectable: variable ratio and ICA EDV. 6. Total occlusion=unable to detect flow. [facility], , 12/22/2024 2:58 PM
--- NOTE | 2024-12-26 18:10 | BD ---
EXAMINATION TYPE: Axial Bone Density DATE OF EXAM: 12/22/2024 CLINICAL HISTORY: 69 years old Female. ICD-10 CODE: M85.851 OSTEOPENIA , Additional History: Height: 59 in Weight: 188 lbs FRAX RISK QUESTIONS: Secondary Osteoporosis: 3. Menopause before 45: partial hysterectomy age 27 EXAM MEASUREMENTS: Bone mineral densitometry was performed using the Inspro System. Bone mineral density as measured about the Lumbar spine is: ----- L1-L4(G/cm2): 1.470 T Score Values are as follows: ----- L1: 2.7 ----- L2: 2.4 ----- L3: 3.0 ----- L4: 1.6 ----- L1-L4: 2.4 Z Score Values are as follows: ----- L1: 3.7 ----- L2: 3.4 ----- L3: 4.0 ----- L4: 2.6 ----- L1-L4: 3.4 Bone mineral density has: Decreased -2.7% since study of: 09/04/2020 Bone mineral density about the R hip (g/cm2): 1.407 Bone mineral density about the L hip (g/cm2): 1.453 T Score values are as follows: -----R Neck: 1.8 -----L Neck: 1.9 -----R Total: 3.2 -----L Total: 3.5 Z Score values are as follows: -----R Neck: 3.1 -----L Neck: 3.2 -----R Total: 4.2 -----L Total: 4.6 Bone mineral density has: Decreased -7.8% since study of: 09/04/2020 FRAX%s: The graph provided illustrates a 4.5% chance for a major osteoporotic fx and a 0.1% chance fo r the hips probability for fx in 10 years time. IMPRESSION: Normal (Values between +1 and -1 indicate normal bone mass). Consider repeating this study in 5 year s or sooner if there is some new clinical indication. NOTE: T-SCORE=SD OF THE YOUNG ADULT MEAN. [facility], , 12/26/2024 6:08 PM
== END | disposition home or self-care (01) ==
LOC: RADUSWWP 13:51
PROVIDERS: ATTEND Internal Medicine
DX: M85.851 Other specified disorders of bone density and structure, right thigh (principal); I65.22 Occlusion and stenosis of left carotid artery
CPT/HCPCS: 77080; 93880

== ENCOUNTER → 2025-01-21 | Outpatient (CLI) | payer MEDICARE ==
--- NOTE | 2025-01-21 14:36 | CA ---
Transthoracic Echo Report Name: Mery Yao Age: 69 Gender: F : 1955 Exam Date: 01/21/2025 12:59 Exam Location: [facility] Ht (in): 58 Wt (lb): 187 Ordering Physician: Inga Tabor MD Attending/Referring Phys: Death Claim Clerk Carmen Kessler RDCS Procedure CPT: Indications: I25.10 ATHSCL HEART DISEASE OF [place] CORONARY ART Cardiac Hx: Technical Quality: Good Contrast 1: Total Dose (mL): Contrast 2: Total Dose (mL): MEASUREMENTS (Male / Female) Normal Values 2D ECHO LV Diastolic Diameter PLAX 3.8 cm 4.2 - 5.9 / 3.9 - 5.3 cm LV Systolic Diameter PLAX 2.5 cm IVS Diastolic Thickness 1.0 cm 0.6 - 1.0 / 0.6 - 0.9 cm LVPW Diastolic Thickness 1.1 cm 0.6 - 1.0 / 0.6 - 0.9 cm LV Relative Wall Thickness 0.6 RV Internal Dim ED PLAX 3.1 cm LA Systolic Diameter LX 3.4 cm 3.0 - 4.0 / 2.7 - 3.8 cm LV Diastolic Volume MOD 4C 84.9 cm??? LV Systolic Volume MOD 4C 30.9 cm??? LV Ejection Fraction MOD 4C 63.6 % LV Cardiac Index MOD 4C 2316.1 cm???/min???m??? LV Diastolic Length 4C 7.9 cm LV Systolic Length 4C 6.2 cm LV Diastolic Volume MOD 2C 55.3 cm??? LV Systolic Volume MOD 2C 28.4 cm??? LV Ejection Fraction MOD 2C 48.6 % LV Cardiac Index MOD 2C 1151.4 cm???/min???m??? LV Diastolic Length 2C 7.2 cm LV Systolic Length 2C 5.9 cm LA Volume 46.0 cm??? 18 - 58 / 22 - 52 cm??? LA Volume Index 24.0 cm???/m??? 16 - 28 cm???/m??? M-MODE Aortic Root Diameter MM 2.9 cm AV Cusp Separation MM 1.8 cm DOPPLER AV Peak Velocity 143.5 cm/s AV Peak Gradient 8.2 mmHg MV Area PHT 3.1 cm??? Mitral E Point Velocity 84.2 cm/s Mitral A Point Velocity 112.2 cm/s Mitral E to A Ratio 0.8 MV Deceleration Time 246.3 ms TR Peak Velocity 278.5 cm/s TR Peak Gradient 31.0 mmHg Right Ventricular Systolic Press 36.0 mmHg FINDINGS Left Ventricle Left ventricular ejection fraction is estimated at 55-60 %.Normal left ventricular systolic function with no obvious regional wall motion abnormalities. Right Ventricle Normal right ventricular size and function. Mild pulmonary hypertension. Right Atrium Normal right atrial size. No right atrial thrombus or mass seen. Left Atrium Normal left atrial size. No left atrial thrombus or mass present. Mitral Valve Structurally normal mitral valve. No evidence for mitral valve prolapse. No mitral stenosis. mild mitral regurgitation.mitral annular calcification. Aortic Valve Trileaflet aortic valve. No aortic valve stenosis or regurgitation. Aortic valve sclerosis. Tricuspid Valve Structurally normal tricuspid valve. Mild tricuspid regurgitation. Pulmonic Valve Structurally normal pulmonic valve. No pulmonic regurgitation. Pericardium No pericardial effusion. Aorta Normal size aortic root and proximal ascending aorta. CONCLUSIONS 1. Normal left ventricular size and systolic function 2. Mild mitral regurgitation 3. Mild tricuspid regurgitation with mild pulmonary hypertension Previewed by: Dr. Jenny Aj MD (Electronically Signed) Final Date: 21 January 2025 14:35
== END | disposition home or self-care (01) ==
LOC: RADECHMAIN 12:31
PROVIDERS: ATTEND Internal Medicine
DX: I25.10 Atherosclerotic heart disease of native coronary artery without angina pectoris (principal); I08.1 Rheumatic disorders of both mitral and tricuspid valves; I27.20 Pulmonary hypertension, unspecified
CPT/HCPCS: 93306